=== PATIENT | female | born 1985 | race Hispanic/Latino ===

== ENCOUNTER 2024-10-07 20:23 | Inpatient (IN) | payer SELFPAY ==
[2024-10-07 23:23] VITALS: BP 145/72; PULSE 76; RESP 19; TEMP 98.3; O2SAT 94
[2024-10-07 23:31] VITALS: BP 138/73; PULSE 75; RESP 19
[2024-10-07 23:46] VITALS: BP 134/71; PULSE 74; RESP 19
[2024-10-08] VITALS (119 sets, daily range): BP systolic 103–195; BP diastolic 56–99; PULSE 69–92; RESP 13–35; TEMP 97.5–98.8; O2SAT 94–100
--- NOTE | 2024-10-08 00:35 | HP ---
[facility] HISTORY & PHYSICAL Date Patient Seen: Oct 08, 2024 Time of Visit: 00:35 Supervising Physician: Dr. Loi Monte Primary Care Physician: [ ] Outpatient Specialists: [ ] Inpatient Consults: Dr. Damon PROBLEM LIST: Acute hypoxic respiratory failure, POA Hypertension, POA Pericardial effusion, circumferential, POA Acute kidney injury, at OSH BUN was 63, and creatinine of 5, POA Cardiac tamponade, POA Pleural effusion, left-sided, POA History of gestational hypertension PLAN: Admit to ICU VS per unit protocol Continue cardiac monitoring Keep head of bed above 30 Continue O2 therapy Obtain order labs and chest x-ray NPO after midnight CT surgery consult Type and screen Multimodal pain relief Keep systolic blood pressure less than 160 P.r.n. hydralazine and labetalol DuoNeb q.6 as needed for shortness of breaths Monitor temperature curve Obtain COVID and flu test Treat fever aggressively Bilateral SCDs CBC, CMP, magnesium level daily HPI: 39-year-old female with past medical history of gestational hypertension who presented to [facility] as a transfer from [facility] here for CT evaluation for pericardial effusion for possible pericardial window. Patient initially presented to OSH with complaint of sudden shortness of breaths that started yesterday. At that time presentation in ED patient was also found to have hypertension requiring Cardene drip. Patient was initially admitted to ICU and underwent 2D echo and found to have moderate to large circumferential pericardial effusion with right ventricular early diastolic collapse suggestive of cardiac tamponade. There is also large left- sided pleural effusion. At OSH her initial lab showed BUN of 63, creatinine of 5.0, glucose of 181, BNP of 3019. Patient was seen and examined in her room with relative present at bedside. Apparently patient is Ethiopian-speaking only however bedside nurses available to translate during evaluation. According to the patient she woke up yesterday with severe shortness of breaths. She then presented to OSH for further medical evaluation. Patient denies any flu-like symptoms, fever, travel outside the [place], weight loss, however complains of a nonproductive cough, with pleuritic chest pain, worse when laying flat. Patient denies any weight loss, poor appetite, or night sweating. Patient also denies any smoking, alcohol int vicente, illicit drug use. Patient does not have her own PCP. CT surgery has been consulted and will be evaluated for possible pericardial window in a.m. PAST MEDICAL HX: Gestational DM PAST SURGICAL HX: SOCIAL HISTORY: No tobacco, ETOH, or illicit drug use REVIEW OF SYSTEMS: 12 point ROS reviewed with patient. Pertinent positives mentioned above. Otherwise negative. PHYSICAL EXAM: GENERAL: alert, weak, awake oriented x 3 HEENT: EOMI, Sclera non icteric, moist mucosa NECK: Supple, no JVD, trachea midline LUNGS: Diminished right lung bruno HEART: Regular rate and rhythm. Normal S1 and S2, without murmurs ABD: Abdomen soft, nontender. Bowel sounds present EXT: No clubbing cyanosis or edema NEURO: Alert and oriented to person, follows commands Vital Signs (last 8hr) Date Time Temp Pulse Resp B/P (MAP) Pulse Ox O2 Delivery O2 Flow Rate FiO2 10/08/24 00:16 77 23 165/72 96 Room Air 10/08/24 00:01 75 19 141/73 96 Room Air 10/07/24 23:46 74 19 134/71 96 Room Air 10/07/24 23:31 75 19 138/73 96 Room Air 10/07/24 23:23 98.2 76 19 145/72 96 Room Air LABS: DIAGNOSTICS / RADIOLOGY RESULTS: [ ] PLAN NEURO: Minimize central acting medications as possible. Fall Precautions. Well lighted room through the day and minimize interruptions through the night to prevent acute delirium. PULMONARY: Supplemental 02 as needed Titrate Fio2 to keep Spo2 > or = 90% DuoNebs and CPT as needed IS hourly while awake for pulmonary hygiene CARDIOVASCULAR: Follow hemodynamics. Titrate vasopressor to keep MAP >65 or systolic blood pressure >95mmHg DIPS: None LINES: PIV GI & NUTRITION: NPO Aspirations precautions Prokinetic agents and laxatives as needed KIDNEYS & ELECTROLYTES: Strict monitoring of intake and output Daily weights Avoid nephrotoxic agents Monitor electrolytes and replace as needed Goal urine output of 30mL/hr or 0.5mL/kg/hr ENDOCRINE: Maintain blood glucose between 100-180 at all times. Insulin sliding scale for blood glucose management INFECTIOUS DISEASE: Trend temperature. Minaya-culture if febrile. Micro: [ ] Antibiotics: [ ] HEMATOLOGY & COAGULATION: Monitor H&H. Keep Hgb > 7 Transfuse 1 unit of PRBC for Hgb < 7 Transfuse 1 pack of platelets of platelets < 20, 000 Watch for any signs and symptoms of bleeding SKIN: Pressure ulcer prevention per facility protocol Rehab: PT/OT Prophylaxis: GI: Protonix DVT: Bilateral SCDs Code Status: Full Resuscitation Disposition: ICU pending CT surgery evaluation Other: Total patient care time exceeds 35 minutes excluding all procedures. Supervising physician: ASAD Nelson APRN Oct 08, 2024 00:35
[2024-10-08] MEDS ORDERED: acetaMINOPHEN 650 MG SUPPOSITORY RC PRN (01:00)
[2024-10-08] MEDS ORDERED: LAbetaLOL 20MG SYG IV PRN (01:00)
--- NOTE | 2024-10-08 01:00 | NUR ---
CALLED DR. DEL ROSARIO TO LET MD KNOW OF PATIENT ARRIVAL TO UNIT. UNABLE TO GET A HOLD OF MD. NOTIFIED OLIVA RIVERA FOR . PER OLIVA DEL ROSARIO CONSULT CRITICAL CARE, TYPE AND SCREEN AND KEEP PATIENT NPO. CRITICAL CARE CONSULTED. DOOR REPAIRER BUS TAHA AT BEDSIDE PATIENT SEEN. NO NEW ORDERS.
[2024-10-08 01:40] LABS: BASOPHILS # (AUTO) 0.04 K/uL (0.00-0.20); BASOPHILS % (AUTO) 0.9 % (0.0-5.0); EOSINOPHILS # (AUTO) 0.21 K/uL (0.00-0.70); EOSINOPHILS % (AUTO) 4.9 % (0.0-8.0); HEMATOCRIT 21.6 % (36-48); IMMATURE GRANULOCYTE ABSOLUTE 0.01 K/uL (0-1); LYMPHOCYTES # (AUTO) 1.1 K/uL (1.0-4.8); LYMPHOCYTES % (AUTO) 25.9 % (21.0-51.0); MEAN CORPUSCULAR HEMOGLOBIN 28.5 pg (27.0-33.0); MEAN CORPUSCULAR HGB CONC 33.3 g/dL (32.0-36.0); MEAN CORPUSCULAR VOLUME 85.4 fL (79-99); MONOCYTES # (AUTO) 0.3 K/uL (0.1-1.0); MONOCYTES % (AUTO) 7.5 % (3.0-13.0); NEUTROPHILS # (AUTO) 2.6 K/uL (1.8-7.7); NEUTROPHILS % (AUTO) 60.6 % (40.0-77.0); PLATELET COUNT (AUTO) 172 K/uL (130-400); RED BLOOD CELL COUNT(AUTO) 2.53 MIL/uL (4.00-5.50); RED CELL DISTRIBUTION WIDTH 14.4 % (11.0-15.5); WHITE BLOOD COUNT (AUTO) 4.3 K/uL (4.8-10.8)
[2024-10-08 01:45] LABS: THYROID STIMULATING HORMONE 1.71 uIU/mL (0.36-3.74); URIC ACID 7.6 mg/dL (2.6-7.2)
[2024-10-08 02:07] LABS: HEMOGLOBIN A1C 5.7 % (4.0-6.0)
--- NOTE | 2024-10-08 02:33 | NUR ---
TRANSFER TO ROOM 218 REPORT GIVEN TO GUILLE RIVERA
[2024-10-08] MEDS: SODIUM CHLORIDE 3% FOR INHALATION 4 ML/AMP VIAL.NEB IH ONE ×2 (03:07→03:08)
[2024-10-08 03:25] LABS: SARS-CoV-2, RNA, NAAT NEGATIVE SARS CoV-2 (NEGATIVE)
[2024-10-08 03:29] LABS: INFLUENZA TYPE A Negative For Type A (NEGATIVE); INFLUENZA TYPE B Negative For Type B (NEGATIVE)
[2024-10-08 06:25] LABS: PROTHROMBIN TIME 11.2 SEC (9.6-11.6)
[2024-10-08 06:27] LABS: PARTIAL THROMBOPLASTIN TIME 28.7 SEC (26.3-35.5)
[2024-10-08] MEDS: hydrALAZine 20MG/ML VIAL IV PRN (08:09)
[2024-10-08] MEDS: PANTOPrazole 40 MG/VIAL IVP SCH ×2 (08:09→22:22)
[2024-10-08 08:15] LABS: MEAN CORPUSCULAR HEMOGLOBIN 28.6 pg (27.0-33.0); MEAN CORPUSCULAR HGB CONC 32.4 g/dL (32.0-36.0); MEAN CORPUSCULAR VOLUME 88.2 fL (79-99); RED BLOOD CELL COUNT(AUTO) 2.38 MIL/uL (4.00-5.50); RED CELL DISTRIBUTION WIDTH 14.6 % (11.0-15.5)
--- NOTE | 2024-10-08 08:59 | NUR ---
pt identifies jew with Jehovah witness, is alert, awake, and oriented x 3. was informed on receiving blood product its risks and consented to receiving all blood and or blood product transfusion recommended. pt voices understanding and consented to blood transfusion. no family member at bedside, witnessed by anesthesiologist, Jose nurse practitioner and aki dinh rn AND THIS NURSE.
--- NOTE | 2024-10-08 09:15 | NUR ---
PT TAKEN TO OR BY MIKO RN, PT AAOX3. NO DISTRESS NOTED. VITALS CHARTED.
--- NOTE | 2024-10-08 10:10 | NUR ---
HOLDING AREA NOTES 0930: PT ARRIVED TO HOLDING AREA FROM ICU RM 218, TRANSFERRED BY Jeanie BOSWELL, MIGUEL. PT TO BEGIN RECEIVING BLOOD TRANSFUSION IN HOLDING AREA PRIOR TO TRANSFER TO OR. THIS RN TO MONITOR PATIENT & BEGIN TRANSFUSION. PT. ALERT/ORIENTED X4, ON NC 2L/MIN. DENIES SOB/CHEST PAIN AT THIS TIME. PT HOOKED UP TO MONITORS, PT WITH HYPERTENSION, BP 180S/80S, WILL NOTIFY ANESTHESIA. PT. WITH NOTED INFILTRATED 18G PIV TO LEFT ARM, WILL DC & START NEW IV X2 IN HOLDING AREA. 0935: DR. BOWEN AT BEDSIDE, UPDATED RE: PT HYPERTENSION. NO NEW ORDERS AT THIS TIME. 20G PIV STARTED TO RT WRIST BY THIS RN, 20G PIV STARTED TO LT HAND BY Maira SOUZA RN. PT TOLERATED WELL. 0940: BLOOD RECEIVED FROM BLOOD BANK. BLOOD CONSENT VERIFIED SIGNED IN PT. CHART. PT AGAIN VERBALLY CONFIRMS CONSENT WAS SIGNED BY HER AND DESIRE TO RECEIVE TRANSFUSION SIGNED TO THIS RN & Maira SOUZA RN. 0954: FIRST UNIT PRBCS STARTED AT THIS TIME. 1010: PT TXFERRED TO OR BY Jeanie BOSWELL RN WITH FIRST UNIT OF PRBCS TRANSFUSING. NO S/S TRANSFUSION REACTION NOTED DURING THIS RN TIME OF MONITORING IN HOLDING AREA. PT DENIES DISCOMFORT, CHANGES IN SIGNS/SYMPTOMS, OR SOB/CHEST PAIN, VITAL SIGNS REMAIN AT BASELINE WHEN TRANSFERRED.
[2024-10-08] MEDS ORDERED: GLYCOPYRROLATE 0.2 MG/ML 5 ML VIAL ONE (10:11)
[2024-10-08] MEDS ORDERED: SUCCINYLCHOLINE CHLORIDE 20 MG/ML 10 ML VIAL ONE (10:11)
[2024-10-08] MEDS ORDERED: proPOFol 10 MG/ML 20ML VIAL IV ONE (10:11)
[2024-10-08] MEDS ORDERED: dexaMETHasone SOD PHOSPHATE 10MG/ML 1ML VIAL ONE (10:11)
[2024-10-08] MEDS ORDERED: ondanSETRON 4MG INJ ONE (10:11)
[2024-10-08] MEDS ORDERED: FENTanyl CITRate PF 50 MCG/1 ML 2ML VIAL ONE (10:11)
[2024-10-08] MEDS ORDERED: NEOSTIGMINE METHYLSULFATE 1MG/ML IV ONE (10:11)
[2024-10-08] MEDS ORDERED: LIDOCAINE PF 100MG/5ML (2%) SYRINGE 5ML ONE ×2 (10:11→10:59)
[2024-10-08] MEDS ORDERED: ETOMIDATE 20MG VIAL ONE (10:12)
[2024-10-08] MEDS ORDERED: rocuRONium bROMide 10MG/1ML 5ML VL ONE (10:12)
[2024-10-08] MEDS ORDERED: NOREPINEPHRINE BITARTRATE 1 MG/1 ML ML IV ONE (10:15)
[2024-10-08] MEDS: ceFAZolin SODIUM 1 GM VIAL ONE (10:30)
[2024-10-08] MEDS: MEPERIDINE-PF 25 MG/ML SYG ONE (11:25)
--- NOTE | 2024-10-08 11:35 | PN ---
[facility] PROGRESS NOTE Date Patient Seen: Oct 08, 2024 Time of Visit: 11:35 Supervising Physician:Dr. Loi Monet Primary Care Physician: [ ] Outpatient Specialists: [ ] Inpatient Consults: Dr. Damon PROBLEM LIST: Acute hypoxic respiratory failure, POA Hypertension, POA Pericardial effusion, circumferential, POA Acute kidney injury, at OSH BUN was 63, and creatinine of 5, POA Cardiac tamponade, POA Pleural effusion, left-sided, POA History of gestational hypertension INTERVAL HISTORY: 10/08/2024: At the time of my evaluation, the patient was lying in bed. Vital signs today consistent elevated blood pressure, normal heart and respiratory rate. Laboratory data showed a low WBC of 4.0. H and H 6.8/21.0 with a MCV of 88.2 and a MCH of 28.6. Platelet count 161. No sign of bleeding. Chemistry panel was negative. The patient is pending to undergo a pericardial window today. Staff nurse reports no acute events overnight. No other complaint. REVIEW OF SYSTEMS: 12 point ROS reviewed with patient. Pertinent positives mentioned above. Otherwise negative. PHYSICAL EXAM: GENERAL: alert, weak, awake oriented x 3 HEENT: EOMI, Sclera non icteric, moist mucosa NECK: Supple, no JVD, trachea midline LUNGS: Diminished right lung bruno HEART: Regular rate and rhythm. Normal S1 and S2, without murmurs ABD: Abdomen soft, nontender. Bowel sounds present EXT: No clubbing cyanosis or edema NEURO: Alert and oriented to person, follows commands Vital Signs (last 8hr) Date Time Temp Pulse Resp B/P (MAP) Pulse Ox O2 Delivery O2 Flow Rate FiO2 10/08/24 10:09 98.1 89 185/87 10/08/24 10:09 98.1 89 185/ 100 Nasal Cannula 2.0 10/08/24 09:59 97.5 89 19110/08/24 09:59 97.5 88 100 Nasal Cannula 2.0 10/08/24 09:54 97.9 90 192/10/08/24 09:54 97.9 90 192/ 100 Nasal Cannula 2.0 10/08/24 09:45 89 21 100 Nasal Cannula 2.0 10/08/24 09:40 90 20 188/86 100 Nasal Cannula 2.0 10/08/24 09:35 92 20 100 Nasal Cannula 2.0 10/08/24 09:30 97.9 91 18 181/85 100 Nasal Cannula 2.0 10/08/24 09:00 88 19 100 10/08/24 08:46 85 19 159/80 100 Room Air 10/08/24 08:45 86 17 100 10/08/24 08:30 86 18 100 10/08/24 08:15 98.2 84 16 100 10/08/24 08:00 79 15 100 Room Air 10/08/24 08:00 94 Room Air* 0 21 10/08/24 07:48 79 21 181/81 100 10/08/24 07:46 80 20 180/93 100 10/08/24 07:45 79 20 100 10/08/24 07:30 81 18 100 10/08/24 07:15 80 20 100 10/08/24 07:13 80 19 179/92 100 Room Air 10/08/24 07:00 81 29 100 Nasal Cannula 1.0 10/08/24 06:00 75 16 176/82 100 Nasal Cannula 1.0 24 10/08/24 05:00 69 15 153/72 99 Nasal Cannula 1.0 24 10/08/24 04:00 98.6 75 13 169/85 100 Nasal Cannula 1.0 24 LABS: Hematology Labs: Test 10/08/24 06:06 10/08/24 00:50 Range/Units White Blood Count 4.0 L 4.8-10.8 K/uL Red Blood Count 2.38 L 4.00-5.50 MIL/uL Hemoglobin 6.8 *L 12.0-16.0 g/dL Hematocrit 21.0 *L 36-48 % Mean Corpuscular Volume 88.2 79-99 fL Mean Corpuscular Hemoglobin 28.6 27.0-33.0 pg Mean Corpuscular Hemoglobin Concent 32.4 32.0-36.0 g/dL Red Cell Distribution Width 14.6 11.0-15.5 % Platelet Count 161 130-400 K/uL Mean Platelet Volume 12.2 H 7.5-10.5 fL Nucleated Red Blood Cells 0.0 0.0-0.19 % Immature Granulocyte % (Auto) 0.2 0-1 % Neutrophils (%) (Auto) 60.6 40.0-77.0 % Lymphocytes (%) (Auto) 25.9 21.0-51.0 % Monocytes (%) (Auto) 7.5 3.0-13.0 % Eosinophils (%) (Auto) 4.9 0.0-8.0 % Basophils (%) (Auto) 0.9 0.0-5.0 % Neutrophils # (Auto) 2.6 1.8-7.7 K/uL Lymphocytes # (Auto) 1.1 1.0-4.8 K/uL Monocytes # (Auto) 0.3 0.1-1.0 K/uL Eosinophils # (Auto) 0.21 0.00-0.70 K/uL Basophils # (Auto) 0.04 0.00-0.20 K/uL Absolute Immature Granulocyte (auto 0.01 0-1 K/uL Erythrocyte Sedimentation Rate 88 H 0-20 MM/HR Chemistry Labs: Test 10/08/24 06:06 10/08/24 00:50 Range/Units Serum Test, Qualitative NEGATIVE NEGATIVE Hemoglobin A1c 5.7 4.0-6.0 % Estimated Average Glucose (eAG) 117 70-126 mg/dL Uric Acid 7.6 H 2.6-7.2 mg/dL Total Creatine Kinase 38 21-232 U/L Troponin I High Sensitivity 49.4 4-50 ng/L B-Type Natriuretic Peptide 299 H 0-100 pg/mL Procalcitonin 2.71 H 0.05-0.5 ng/mL Thyroid Stimulating Hormone (TSH) 1.71 0.36-3.74 uIU/mL Coagulation Labs: Test 10/08/24 06:06 Range/Units Prothrombin Time 11.2 9.6-11.6 SEC Prothromb Time International Ratio 1.00 0.85-1.15 Activated Partial Thromboplast Time 28.7 26.3-35.5 SEC DIAGNOSTICS / RADIOLOGY RESULTS: [ ] PLAN 10/08/2024: For now, we are going to continue current management for the patient. Unfortunately, the patient H&H is low. She is also a Mosque believer. Anesthesia spoke with the patient regarding the low H&H and the need for correction in efforts of undergoing the procedure. The patient did agreed for blood transfusion which will be done once the patient was taken to the OR. We will continue to monitor the H&H coordinate post transfusion. The patient will continue on GI prophylaxis with IV Protonix, which I am going to increase to twice daily. We will continue to follow up with the patient postoperatively. We will continue to provide general supportive care, GI and DVT prophylaxis. Further orders per attending MD and hospital course. NEURO: Minimize central acting medications as possible. Fall Precautions. Well lighted room through the day and minimize interruptions through the night to prevent acute delirium. PULMONARY: Supplemental 02 as needed Titrate Fio2 to keep Spo2 > or = 90% DuoNebs and CPT as needed IS hourly while awake for pulmonary hygiene CARDIOVASCULAR: Follow hemodynamics. Titrate vasopressor to keep MAP >65 or systolic blood pressure >95mmHg DIPS: None LINES: PIV GI & NUTRITION: NPO Aspirations precautions Prokinetic agents and laxatives as needed KIDNEYS & ELECTROLYTES: Strict monitoring of intake and output Daily weights Avoid nephrotoxic agents Monitor electrolytes and replace as needed Goal urine output of 30mL/hr or 0.5mL/kg/hr ENDOCRINE: Maintain blood glucose between 100-180 at all times. Insulin sliding scale for blood glucose management INFECTIOUS DISEASE: Trend temperature. Minaya-culture if febrile. Micro: [ ] Antibiotics: [ ] HEMATOLOGY & COAGULATION: Monitor H&H. Keep Hgb > 7 Transfuse 1 unit of PRBC for Hgb < 7 Transfuse 1 pack of platelets of platelets < 20, 000 Watch for any signs and symptoms of bleeding SKIN: Pressure ulcer prevention per facility protocol Rehab: PT/OT Prophylaxis: GI: Protonix DVT: Bilateral SCDs Code Status: Full Resuscitation Disposition: ICU Other: Total patient care time exceeds 35 minutes excluding all procedures. DAVE OSWALD NP Oct 08, 2024 11:35
--- NOTE | 2024-10-08 12:28 | NUR ---
pt arrived at this time form PACU, SP PERICARDIAL WINDOW, CHEST TUBE PRESENT TO 1 CHAMBER WITH 85 CC PRESENT OF SEROSANGUINEOUS FLUID. PT AAOX3. VITALS CHARTED.
[2024-10-08] MEDS: HYDROcodone/APAP 5/325 1 TAB TABLET PO PRN (12:38)
[2024-10-08] MEDS: SUGAMMADEX SODIUM 200 MG/2 ML VIAL IV ONE (12:39)
[2024-10-08 12:55] LABS: AMYLASE,BODY FLUID 26 U/L; TOTAL PROTEIN,BODY FLUID 3.6 g/dL
[2024-10-08 12:56] LABS: BODY FLUID RBC 2382 /cu. mm.; BODY FLUID WBC 117 /cu. mm.
--- NOTE | 2024-10-08 14:42 | HMCIMG ---
CHEST 1VW HISTORY: Pericardial window COMPARISON: 10/06/2024 FINDINGS: A frontal projection of the chest was obtained. There are bilateral pulmonary infiltrates suggestive of pulmonary vascular congestion with possible superimposed pneumonitis. The heart is borderline enlarged. Poor inspiratory effort is seen. No evidence of aortic calcification is seen. IMPRESSION: 1. Bilateral pulmonary infiltrates are seen suggestive of pulmonary vascular congestion with possible superimposed pneumonitis.
[2024-10-08 15:05] LABS: BF LYMPHOCYTE 29 %; BF MONOCYTE 12 %; BF TOTAL CELLS COUNTED 100
[2024-10-08 15:06] LABS: APPEARANCE BODY FLUID SLIGHTLY CLOUDY (CLEAR); COLOR,BODY FLUID LT YELLOW (LT YELLOW); PH, BODY FLUID 7; SPECIMENTYPE,BODY FLUID PERICARDIAL; TOTAL VOLUME,BODY FLUID 100 mL
[2024-10-08] MEDS: hydroMORPHone 0.5 MG SYG (0.5MG/0.5ML) IVP PRN (16:00)
--- NOTE | 2024-10-08 16:13 | NUR ---
DCP Pt awake, alert, oriented x3 pt states she lives with her daughter in her house and has lived there for 18 yrs. Pt does not have any medical equipment. If needed primary point of contact is mother Suellen Mariee [phone]. Asked if pt has difficulty paying bills and money for food, states yes some difficulty. Provided pt and her mother Suellen Mariee with [facility] resource list. Anticipates discharge plan is for home. Addendum: 10/08/24 at 1619 by BRENDA DIAZ RN CM Amended: Links added.
--- NOTE | 2024-10-08 20:18 | OP ---
DATE OF PROCEDURE: 10/08/2024 PREOPERATIVE DIAGNOSIS: Pericardial effusion with evidence of early tamponade. POSTOPERATIVE DIAGNOSIS: Pericardial effusion with evidence of early tamponade. PROCEDURE PERFORMED: Pericardial window. OPERATING SURGEON: Anup Damon MD PROTOTYPE MACHINE OPERATOR: Norma Landa ANESTHESIOLOGIST: Dr. Persaud. TYPE OF ANESTHESIA: General endotracheal anesthesia. BRIEF HISTORY: The patient is a 39-year-old female with past history of hypertension, who presented with shortness of breath and fatigue, who was found to be in hypertensive crisis. This was treated with IV antihypertensives. She also underwent an echocardiogram, which revealed a large pericardial effusion with evidence of early tamponade. She was transferred to this institution for pericardial window. FINDINGS: The patient had 400 mL of serous fluid under pressure in her pericardium. She had 200 mL of serous fluid in right pleural space. The pericardium itself was normal and was not inflamed or thickened. DESCRIPTION OF PROCEDURE: The patient was brought to the operating room and placed on the operating table in supine position. After placing lines and catheters, her chest was prepped and draped in usual sterile fashion gowned and ready to cut, the patient was given general endotracheal anesthesia. A longitudinal incision was made over the xiphoid. The xiphoid was dissected out and removed with a rongeur. The pericardium was then cleared of pericardial fat and pericardium was entered with electrocautery and spread with . A 400 mL of serous fluid under pressure was drained, 100 mL of which was sent to lab. A piece of pericardium was excised and sent to pathology. The pericardium was then deeply cut into the right pleural space and a 24-Portuguese Horacio drain with its tip in the right pleural space and its body and the pericardium was secured to the lower incision with a silk suture. The midline fascia was then closed with running Vicryl suture, subcutaneous tissues closed with running Vicryl suture and the skin closed using a running intracuticular Monocryl stitch. The wounds were cleaned and dried, covered with bandages. The patient was undraped, extubated and taken to recovery room into the ICU in critical but stable condition. TID: [id number] RECEIPT: [id number] cc: SHAUN PEREZ MD(User), Norma Landa
[2024-10-09] VITALS (37 sets, daily range): BP systolic 112–196; BP diastolic 52–93; PULSE 76–93; RESP 12–26; TEMP 97.7–99; O2SAT 95–99
[2024-10-09 04:46] LABS: BASOPHILS # (AUTO) 0.05 K/uL (0.00-0.20); BASOPHILS % (AUTO) 0.5 % (0.0-5.0); EOSINOPHILS # (AUTO) 0.01 K/uL (0.00-0.70); EOSINOPHILS % (AUTO) 0.1 % (0.0-8.0); HEMATOCRIT 32.5 % (36-48); IMMATURE GRANULOCYTE ABSOLUTE 0.04 K/uL (0-1); LYMPHOCYTES # (AUTO) 0.8 K/uL (1.0-4.8); LYMPHOCYTES % (AUTO) 7.9 % (21.0-51.0); MEAN CORPUSCULAR HEMOGLOBIN 28.8 pg (27.0-33.0); MEAN CORPUSCULAR HGB CONC 32.9 g/dL (32.0-36.0); MEAN CORPUSCULAR VOLUME 87.6 fL (79-99); MONOCYTES # (AUTO) 0.6 K/uL (0.1-1.0); MONOCYTES % (AUTO) 6.1 % (3.0-13.0); NEUTROPHILS # (AUTO) 8.3 K/uL (1.8-7.7); PLATELET COUNT (AUTO) 166 K/uL (130-400); RED BLOOD CELL COUNT(AUTO) 3.71 MIL/uL (4.00-5.50); RED CELL DISTRIBUTION WIDTH 15.6 % (11.0-15.5); WHITE BLOOD COUNT (AUTO) 9.8 K/uL (4.8-10.8)
[2024-10-09 04:52] LABS: INR 1.07 (0.85-1.15); PROTHROMBIN TIME 11.9 SEC (9.6-11.6)
[2024-10-09 05:03] LABS: MAGNESIUM 1.8 mg/dL (1.80-2.40); PHOSPHORUS 6.1 mg/dL (2.5-4.9); POTASSIUM 5.6 mmol/L (3.5-5.1); THYROID STIMULATING HORMONE 1.79 uIU/mL (0.36-3.74)
[2024-10-09 05:24] LABS: B-TYPE NATRIURETIC PEPTIDE 739 pg/mL (0-100)
[2024-10-09] MEDS: kayEXALate 15GM/60ML PO ONE (09:27)
--- NOTE | 2024-10-09 10:09 | PN ---
SUBJECTIVE: The patient is postop day #1 from a pericardial window. The patient is extubated and doing well and offers no complaints. However, her renal function and her labs this morning are worsening. OBJECTIVE: VITAL SIGNS: Reveal pulse of 76, respirations 16, blood pressure is 159/77, oxygen saturations are 100%. HEENT: Reveals to be normocephalic, atraumatic. Extraocular movements intact. She has nasal cannula oxygen prongs under her nose. HEART: S1, S2 with a rub. CHEST: Her subxiphoid wound is bandaged. Her chest tubes in place with a total of 550 mL of output from her pericardium in right chest. ABDOMEN: Flat with positive bowel sounds. ASSESSMENT AND PLAN: * From pericardial window. Keep chest tubes in place, but put to waterseal. The patient up into a bedside chair. The patient will be transferred out of the ICU to a telemetry unit for cardiac rehabilitation. * Post operative acute pulmonary insufficiency secondary to thoracic surgery and pericardial effusion and renal dysfunction. Encourage incentive spirometry. Attempt to wean off of nasal cannula oxygen ____ oxygen saturations above 90%. * Deep vein thrombosis prophylaxis. Place SCDs to her lower extremities. * Renal dysfunction. We will consult Nephrology. Time spent 30 minutes. The patient is in the ICU. TID: [id number] RECEIPT: [id number]
[2024-10-09] MEDS: ondanSETRON 4MG INJ IVP PRN (10:31)
--- NOTE | 2024-10-09 11:30 | HMCIMG ---
FRONTAL CHEST RADIOGRAPH INDICATION: s/p pericardial window COMPARISON: 10/08/2024 FINDINGS/IMPRESSION: funeral service manager leads overlie the field of view. Heart is slightly enlarged, without pulmonary vascular congestion. Stable right chest tube, without pneumothorax. Small layering bilateral pleural effusions with subjacent passive atelectasis.
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
[2024-10-09 14:52] LABS: POTASSIUM 5.7 mmol/L (3.5-5.1)
[2024-10-09] MEDS: NA ZIRCON CYCLOSIL(LOKELMA 10GM) PO SCH (15:33)
--- NOTE | 2024-10-09 15:38 | PN ---
[facility] PROGRESS NOTE Date Patient Seen: Oct 09, 2024 Time of Visit: 15:24 Supervising Physician: Dr. Ferreira Primary Care Physician: [ ] Outpatient Specialists: [ ] Inpatient Consults: Dr. Damon PROBLEM LIST: Acute hypoxic respiratory failure, POA Hypertension, POA Pericardial effusion, circumferential, POA s/p pericardial window on 10/08/24 Acute kidney injury on CKD 5 POA Cardiac tamponade, POA Pleural effusion, left-sided, POA History of gestational hypertension INTERVAL HISTORY: 10/08/2024: At the time of my evaluation, the patient was lying in bed. Vital signs today consistent elevated blood pressure, normal heart and respiratory rate. Laboratory data showed a low WBC of 4.0. H and H 6.8/21.0 with a MCV of 88.2 and a MCH of 28.6. Platelet count 161. No sign of bleeding. Chemistry panel was negative. The patient is pending to undergo a pericardial window today. Staff nurse reports no acute events overnight. No other complaint. 10/09/2024: At the time of my evaluation, the patient is lying in bed. She is status post pericardial window on one 10/08/2024. Per the staff nurse, chest tube output overnight was approximately 300 mL. The patient's main complaint is chest wall pain on the right. Blood pressure readings showed elevated blood pressure systolic in the 170s. CBC showed improve H&H the 10.7/32.5 NS stable platelet count of 166. Chemistry panel showed elevated potassium count of 5.6 renal parameters showed a BUN of 68, creatinine of 6.0 and a GFR of 8. BNP level of 739. Microbiology data showed body fluids which are currently negative. Chest x-ray today showed chest tube in stable position, cardiomegaly and bilateral pleural effusion. Otherwise, no new complaint. REVIEW OF SYSTEMS: 12 point ROS reviewed with patient. Pertinent positives mentioned above. Otherwise negative. PHYSICAL EXAM: GENERAL: alert, weak, awake oriented x 3 HEENT: EOMI, Sclera non icteric, moist mucosa NECK: Supple, no JVD, trachea midline LUNGS: Diminished right lung bruno HEART: Regular rate and rhythm. Normal S1 and S2, without murmurs ABD: Abdomen soft, nontender. Bowel sounds present EXT: No clubbing cyanosis or edema NEURO: Alert and oriented to person, follows commands Vital Signs (last 8hr) Date Time Temp Pulse Resp B/P (MAP) Pulse Ox O2 Delivery O2 Flow Rate FiO2 10/09/24 12:00 98.6 81 24 177/87 100 Nasal Cannula 2.0 10/09/24 11:00 80 21 178/83 100 Nasal Cannula 2.0 10/09/24 10:00 80 26 189/90 100 Nasal Cannula 2.0 10/09/24 09:00 77 22 158/77 100 Nasal Cannula 2.0 10/09/24 08:00 99 Nasal Cannula* 2 28 10/09/24 08:00 98.4 77 24 169/80 100 Nasal Cannula 2.0 LABS: Hematology Labs: Test 10/09/24 04:29 Range/Units White Blood Count 9.8 # 4.8-10.8 K/uL Red Blood Count 3.71 #L 4.00-5.50 MIL/uL Hemoglobin 10.7 #L 12.0-16.0 g/dL Hematocrit 32.5 #L 36-48 % Mean Corpuscular Volume 87.6 79-99 fL Mean Corpuscular Hemoglobin 28.8 27.0-33.0 pg Mean Corpuscular Hemoglobin Concent 32.9 32.0-36.0 g/dL Red Cell Distribution Width 15.6 H 11.0-15.5 % Platelet Count 166 130-400 K/uL Mean Platelet Volume 12.3 H 7.5-10.5 fL Immature Granulocyte % (Auto) 0.4 0-1 % Neutrophils (%) (Auto) 85.0 H 40.0-77.0 % Lymphocytes (%) (Auto) 7.9 L 21.0-51.0 % Monocytes (%) (Auto) 6.1 3.0-13.0 % Eosinophils (%) (Auto) 0.1 0.0-8.0 % Basophils (%) (Auto) 0.5 0.0-5.0 % Neutrophils # (Auto) 8.3 H 1.8-7.7 K/uL Lymphocytes # (Auto) 0.8 L 1.0-4.8 K/uL Monocytes # (Auto) 0.6 0.1-1.0 K/uL Eosinophils # (Auto) 0.01 0.00-0.70 K/uL Basophils # (Auto) 0.05 0.00-0.20 K/uL Absolute Immature Granulocyte (auto 0.04 0-1 K/uL Nucleated Red Blood Cells 0.0 0.0-0.19 % White Cell Morphology Comment See comments Erythrocyte Sedimentation Rate 40 H 0-20 MM/HR Chemistry Labs: Test 10/09/24 14:23 10/09/24 04:29 10/08/24 06:06 10/08/24 00:50 Range/Units Sodium Level 137 136-145 mmol/L Potassium Level 5.7 H 3.5-5.1 mmol/L Chloride Level 102 101-111 mmol/L Carbon Dioxide Level 25 21-32 mmol/L Blood Urea Nitrogen 70 H 7-18 mg/dL Creatinine 6.0 H 0.5-1.0 mg/dL Glomerular Filtration Rate Calc 8 >90 mL/min Random Glucose 84 70-105 mg/dL Total Calcium 8.3 L 8.5-10.1 mg/dL Phosphorus Level 6.1 H 2.5-4.9 mg/dL Magnesium Level 1.80 1.80-2.40 mg/dL Lactate Dehydrogenase 175 81-234 U/L C-Reactive Protein, Quantitative 75.90 H 0.5-3.0 mg/L B-Type Natriuretic Peptide 739 H 0-100 pg/mL Thyroid Stimulating Hormone (TSH) 1.79 0.36-3.74 uIU/mL Serum Test, Qualitative NEGATIVE NEGATIVE Hemoglobin A1c 5.7 4.0-6.0 % Estimated Average Glucose (eAG) 117 70-126 mg/dL Uric Acid 7.6 H 2.6-7.2 mg/dL Total Creatine Kinase 38 21-232 U/L Troponin I High Sensitivity 49.4 4-50 ng/L Procalcitonin 2.71 H 0.05-0.5 ng/mL Coagulation Labs: Test 10/09/24 04:29 10/08/24 06:06 Range/Units Prothrombin Time 11.9 H 9.6-11.6 SEC Prothromb Time International Ratio 1.07 0.85-1.15 Activated Partial Thromboplast Time 28.7 26.3-35.5 SEC DIAGNOSTICS / RADIOLOGY RESULTS: [ ] PLAN 10/08/2024: For now, we are going to continue current management for the pa tient. Unfortunately, the patient H&H is low. She is also a L[employer] day believer. Anesthesia spoke with the patient regarding the low H&H and the need for correction in efforts of undergoing the procedure. The patient did agreed for blood transfusion which will be done once the patient was taken to the OR. We will continue to monitor the H&H coordinate post transfusion. The patient will continue on GI prophylaxis with IV Protonix, which I am going to increase to twice daily. We will continue to follow up with the patient postoperatively. We will continue to provide general supportive care, GI and DVT prophylaxis. Further orders per attending MD and hospital course. 10/09/2024: For now, going to continue current management for the patient. I am going to replace the potassium deficit, the patient receive Kayexalate earlier today, but the right after had a emesis episodes. I am going to order Lokelma 10 b.i.d. x2 days and we will follow the potassium level. Nephrology is on board due to the elevated renal parameters nearing dialysis range. Per the career development associate, the chest tube to remain to water seal and continue monitoring the output. We will repeat surveillance labs in the morning. We will monitor the patient's progress and response to management. We will continue to provide general supportive care, GI and DVT prophylaxis. Further orders per attending MD and hospital course. NEURO: Minimize central acting medications as possible. Fall Precautions. Well lighted room through the day and minimize interruptions through the night to prevent acute delirium. PULMONARY: Supplemental 02 as needed Titrate Fio2 to keep Spo2 > or = 90% DuoNebs and CPT as needed IS hourly while awake for pulmonary hygiene CARDIOVASCULAR: Follow hemodynamics. Titrate vasopressor to keep MAP >65 or systolic blood pressure >95mmHg DIPS: None LINES: PIV GI & NUTRITION: NPO Aspirations precautions Prokinetic agents and laxatives as needed KIDNEYS & ELECTROLYTES: Strict monitoring of intake and output Daily weights Avoid nephrotoxic agents Monitor electrolytes and replace as needed Goal urine output of 30mL/hr or 0.5mL/kg/hr ENDOCRINE: Maintain blood glucose between 100-180 at all times. Insulin sliding scale for blood glucose management INFECTIOUS DISEASE: Trend temperature. Minaya-culture if febrile. Micro: [ ] Antibiotics: [ ] HEMATOLOGY & COAGULATION: Monitor H&H. Keep Hgb > 7 Transfuse 1 unit of PRBC for Hgb < 7 Transfuse 1 pack of platelets of platelets < 20, 000 Watch for any signs and symptoms of bleeding SKIN: Pressure ulcer prevention per facility protocol Rehab: PT/OT Prophylaxis: GI: Protonix DVT: Bilateral SCDs Code Status: Full Resuscitation Disposition: ICU Other: Total patient care time exceeds 35 minutes excluding all procedures. DAVE OSWALD [employer] SUPERVISOR Oct 09, 2024 15:37
--- NOTE | 2024-10-09 15:42 | CONS ---
NEPHROLOGY CONSULTATION NOTE Date/Time Patient Seen: Oct 09, 2024 1415 Reason for Consultation: Shortness of breath, Pericardial effusion, acute on chronic renal failure HISTORY OF PRESENT ILLNESS: This is a 39-year-old female with a past medical history of gestational hypertension Patient was transferred from [facility] for CT evaluation for pericardial effusion and possible pericardial window. She presented to [facility] Emergency room with complaints of sudden shortness of breath. She was found to be hypertensive according Cardene drip. 2D echo revealed found to have moderate to large circumferential pericardial effusion with right ventricular early diastolic collapse suggestive of cardiac tamponade. There is also large left-sided pleural effusion. S/p pericardial window with 400 mL removed, 100 mL were sent for cytology. She was noted to have elevated BUN/creatinine. We have been consulted for renal failure. Renal function remains elevated Electrolytes and hemoglobin are stable. Patient is aware of kidney problems states she had a biopsy done by head stock transfer clerk Patient not does not remember biopsy results or head stock transfer clerk name. She was seen in the ICU, in no acute distress Family at the bedside Prognosis remains guarded REVIEW OF SYSTEMS: GENERAL: Negative for any nausea, vomiting, fevers, chills, or weight loss. NEUROLOGIC: Negative for any blurry vision, blind spots, double vision, facial asymmetry, dysphagia, dysarthria, hemiparesis, hemisensory deficits, vertigo, at axia. HEENT: Negative for any head trauma, neck trauma, neck stiffness, photophobia, phonophobia, sinusitis, rhinitis. CARDIAC: Negative for any chest pain, dyspnea on exertion, paroxysmal nocturnal dyspnea, peripheral edema. PULMONARY: Negative for any shortness of breath, wheezing, COPD, or TB exposure. GASTROINTESTINAL: Negative for any abdominal pain, nausea, vomiting, bright red blood per rectum, melena. GENITOURINARY: Negative for any dysuria, hematuria, incontinence. INTEGUMENTARY: Negative for any rashes, cuts, insect bites. RHEUMATOLOGIC: Negative for any joint pains, photosensitive rashes, history of vasculitis or kidney problems. HEMATOLOGIC: Negative for any abnormal bruising, frequent infections or bleedin g. PAST MEDICAL HISTORY: Gestational hypertension PAST SURGICAL HISTORY: Pericardial window PAST SOCIAL HISTORY: FAMILY HISTORY: Noncontributory PHYSICAL EXAM: GENERAL: Alert and oriented x 3. No acute distress. Well-nourished. EYES: EOMI. Anicteric. HENT: Moist mucous membranes. No scleral icterus. No cervical lymphadenopathy. LUNGS: Clear to auscultation bilaterally. No accessory muscle use. CARDIOVASCULAR: Regular rate and rhythm. No murmur. No JVD. ABDOMEN: Soft, non-tender and non-distended. No palpable masses. EXTREMITIES: No edema. Non-tender. SKIN: No rashes or lesions. Warm. NEUROLOGIC: No focal neurological deficits. CN II-XII grossly intact, but not individually tested. PSYCHIATRIC: Cooperative. Appropriate mood and affect. MEDICATIONS: [ ] Current Medications Medications (Trade) Dose Ordered Sig/Rosana Route PRN Reason Start Time Stop Time Status Last Admin Dose Admin Acetaminophen (TYLenol 325MG TAB) 650 mg Q6H PRN PO FEVER/MILD PAIN LEVEL 1-3 10/08/24 01:00 11/07/24 00:59 Acetaminophen (TYLenol 650MG SUPPOSITORY) 650 mg Q6H PRN RC FEVER / MILD PAIN 1-3 IF NPO 10/08/24 01:00 11/07/24 00:59 Acetaminophen/ Hydrocodone Bitart (NORco 5/325MG) 1 tab Q6H PRN PO MILD PAIN (1-3) 10/08/24 01:00 10/13/24 00:59 10/09/24 15:20 1 TAB Hydralazine HCl (APRESOLine 20MG INJ) 10 mg Q6H PRN IV SBP GREATER THAN 180 10/08/24 01:00 11/07/24 00:59 10/08/24 08:09 10 MG Hydromorphone HCl (DiLAUDid 0.5MG INJ) 0.5 mg Q6H PRN IVP SEVERE PAIN (7-10) 10/08/24 15:30 10/13/24 15:29 10/08/24 16:00 0.5 MG Labetalol HCl (TRANdate 20MG SYG) 10 mg Q2H PRN IV SBP GREATER THAN 180 10/08/24 01:00 11/07/24 00:59 Magnesium Sulfate 50 ml @ 0 mls/hr PROTOCOL IV 10/09/24 07:00 11/08/24 06:59 Ondansetron HCl (zoFRAN 4MG INJ) 4 mg Q6H PRN IVP NAUSEA/VOMITING 10/08/24 01:00 11/07/24 00:59 10/09/24 10:31 4 MG Pantoprazole Sodium (PROTonix 40MG INJ) 40 mg DAILY IVP 10/08/24 09:00 10/08/24 21:44 DC 10/08/24 08:09 40 MG Pantoprazole Sodium (PROTonix 40MG INJ) 40 mg Q12H IVP 10/08/24 22:00 11/07/24 08:59 10/09/24 09:28 40 MG Sodium Zirconium Cyclosilicate (Lokelma 10gm Powder) 10 gm BID PO 10/09/24 15:00 10/10/24 21:00 Vitamin B Complex/ Vit C/Folic Acid (Nephrovite Tablet) 1 cap DAILY PO 10/10/24 09:00 11/09/24 08:59 Vital Signs (last 8hr) Date Time Temp Pulse Resp B/P (MAP) Pulse Ox O2 Delivery O2 Flow Rate FiO2 10/09/24 12:00 98.6 81 24 177/87 100 Nasal Cannula 2.0 10/09/24 11:00 80 21 178/83 100 Nasal Cannula 2.0 10/09/24 10:00 80 26 189/90 100 Nasal Cannula 2.0 10/09/24 09:00 77 22 158/77 100 Nasal Cannula 2.0 10/09/24 08:00 99 Nasal Cannula* 2 28 10/09/24 08:00 98.4 77 24 169/80 100 Nasal Cannula 2.0 DIAGNOSTICS / RADIOLOGY: REASON: s/p pericardial window ORDERING PHYSICIAN: MICHAEL DEL ROSARIO MD PROCEDURE: CXR1VW - CHEST 1VW FRONTAL CHEST RADIOGRAPH INDICATION: s/p pericardial window COMPARISON: 10/08/2024 FINDINGS/IMPRESSION: electronic device monitor leads overlie the field of view. Heart is slightly enlarged, without pulmonary vascular congestion. Stable right chest tube, without pneumothorax. Small layering bilateral pleural effusions with subjacent passive atelectasis. DICTATED BY: JORGE BILLS MD DATE: 10/09/246 REASON: s/p pericardial window ORDERING PHYSICIAN: MICHAEL DEL ROSARIO MD PROCEDURE: CXR1VW - CHEST 1VW CHEST 1VW HISTORY: Pericardial window COMPARISON: 10/06/2024 FINDINGS: A frontal projection of the chest was obtained. There are bilateral pulmonary infiltrates suggestive of pulmonary vascular congestion with possible superimposed pneumonitis. The heart is borderline enlarged. Poor inspiratory effort is seen. No evidence of aortic calcification is seen. IMPRESSION: 1. Bilateral pulmonary infiltrates are seen suggestive of pulmonary vascular congestion with possible superimposed pneumonitis. DICTATED BY: KARL DRISCOLL MD DATE: 10/08/24 1437 LABORATORY: [ ] Hematology Labs: Test 10/09/24 04:29 Range/Units White Blood Count 9.8 # 4.8-10.8 K/uL Red Blood Count 3.71 #L 4.00-5.50 MIL/uL Hemoglobin 10.7 #L 12.0-16.0 g/dL Hematocrit 32.5 #L 36-48 % Mean Corpuscular Volume 87.6 79-99 fL Mean Corpuscular Hemoglobin 28.8 27.0-33.0 pg Mean Corpuscular Hemoglobin Concent 32.9 32.0-36.0 g/dL Red Cell Distribution Width 15.6 H 11.0-15.5 % Platelet Count 166 130-400 K/uL Mean Platelet Volume 12.3 H 7.5-10.5 fL Immature Granulocyte % (Auto) 0.4 0-1 % Neutrophils (%) (Auto) 85.0 H 40.0-77.0 % Lymphocytes (%) (Auto) 7.9 L 21.0-51.0 % Monocytes (%) (Auto) 6.1 3.0-13.0 % Eosinophils (%) (Auto) 0.1 0.0-8.0 % Basophils (%) (Auto) 0.5 0.0-5.0 % Neutrophils # (Auto) 8.3 H 1.8-7.7 K/uL Lymphocytes # (Auto) 0.8 L 1.0-4.8 K/uL Monocytes # (Auto) 0.6 0.1-1.0 K/uL Eosinophils # (Auto) 0.01 0.00-0.70 K/uL Basophils # (Auto) 0.05 0.00-0.20 K/uL Absolute Immature Granulocyte (auto 0.04 0-1 K/uL Nucleated Red Blood Cells 0.0 0.0-0.19 % White Cell Morphology Comment See comments Erythrocyte Sedimentation Rate 40 H 0-20 MM/HR Chemistry Labs: Test 10/09/24 14:23 10/09/24 04:29 10/08/24 06:06 10/08/24 00:50 Range/Units Sodium Level 137 136-145 mmol/L Potassium Level 5.7 H 3.5-5.1 mmol/L Chloride Level 102 101-111 mmol/L Carbon Dioxide Level 25 21-32 mmol/L Blood Urea Nitrogen 70 H 7-18 mg/dL Creatinine 6.0 H 0.5-1.0 mg/dL Glomerular Filtration Rate Calc 8 >90 mL/min Random Glucose 84 70-105 mg/dL Total Calcium 8.3 L 8.5-10.1 mg/dL Phosphorus Level 6.1 H 2.5-4.9 mg/dL Magnesium Level 1.80 1.80-2.40 mg/dL Lactate Dehydrogenase 175 81-234 U/L C-Reactive Protein, Quantitative 75.90 H 0.5-3.0 mg/L B-Type Natriuretic Peptide 739 H 0-100 pg/mL Thyroid Stimulating Hormone (TSH) 1.79 0.36-3.74 uIU/mL Serum Test, Qualitative NEGATIVE NEGATIVE Hemoglobin A1c 5.7 4.0-6.0 % Estimated Average Glucose (eAG) 117 70-126 mg/dL Uric Acid 7.6 H 2.6-7.2 mg/dL Total Creatine Kinase 38 21-232 U/L Troponin I High Sensitivity 49.4 4-50 ng/L Procalcitonin 2.71 H 0.05-0.5 ng/mL Coagulation Labs: Test 10/09/24 04:29 10/08/24 06:06 Range/Units Prothrombin Time 11.9 H 9.6-11.6 SEC Prothromb Time International Ratio 1.07 0.85-1.15 Activated Partial Thromboplast Time 28.7 26.3-35.5 SEC ASSESSMENT: Acute on chronic renal failure Anemia Hyperkalemia Acute hypoxic respiratory failure Hypertension Pericardial effusion, circumferential Cardiac tamponade Pleural effusion, left-sided PLAN: Labs, diagnostic, radiologic exams reviewed and interpreted by myself and supervising physician. We have reviewed external records in detail Obtain UA and complete renal ultrasound Social service consult for outpatient dialysis qualification. Obtain records from head stock transfer clerk and renal biopsy results Start Nephro-Belia daily Dietary consult for renal diet. Require close monitoring of renal function and electrolytes Order CBC, CMP, uric acid, TSH, complete iron panel, ferritin, PTH and electrolytes in am Renal diet BiPAP as necessary, for respiratory distress IV pressors as needed Monitor blood pressure adjust medication doses as needed Avoid hypotensive episodes May use Dilaudid 0.5 mg IV every 6 hours as needed for severe pain Monitor blood sugars Strict intake, output, and daily weight should be monitored Please renally adjust medications Avoid nephrotoxic and nonsteroidal drugs Avoid contrast if possible Will continue to monitor renal function, anemia, electrolytes Treatment plan discussed with patient Questions were answered We have discussed with the other team physicians in detail about the care plan We will continue to monitor the patient closely Thank you for allowing us to participate in the care of this patient Total critical care time spent with patient, nursing staff, critical care team over 35 minute ATTESTATION BY PHYSICIAN I have seen and examined the patient. I reviewed the documentation, medical decision making, and treatment plan as noted by the mid-level provider above. I agree with the findings and plan of care. LEE RODRIGUEZ MD, [facility] Oct 09, 2024 15:42 LEE RODRIGUEZ MD Oct 09, 2024 19:07
--- NOTE | 2024-10-09 17:10 | NUR ---
ATTEMPTED CALL TO DR. TORRES'S OFFICE TO TRY AND FIND INFORMATION ON PATIENT INVESTIGATOR CLAIMS. NO ANSWER AT MD'S OFFICE.
[2024-10-10] VITALS (10 sets, daily range): BP systolic 119–184; BP diastolic 61–86; PULSE 72–90; RESP 16–20; TEMP 97.8–98.6; O2SAT 95–100
[2024-10-10 03:54] LABS: HEMATOCRIT 33.6 % (36-48); MEAN CORPUSCULAR HEMOGLOBIN 28.9 pg (27.0-33.0); MEAN CORPUSCULAR HGB CONC 32.4 g/dL (32.0-36.0); MEAN CORPUSCULAR VOLUME 89.1 fL (79-99); PLATELET COUNT (AUTO) 178 K/uL (130-400); RED BLOOD CELL COUNT(AUTO) 3.77 MIL/uL (4.00-5.50); RED CELL DISTRIBUTION WIDTH 15.6 % (11.0-15.5)
[2024-10-10 04:05] LABS: INR 1.1 (0.85-1.15); PROTHROMBIN TIME 12.2 SEC (9.6-11.6)
[2024-10-10 04:07] LABS: PARTIAL THROMBOPLASTIN TIME 33.7 SEC (26.3-35.5)
[2024-10-10 04:24] LABS: ASPARTATE AMINOTRANSFERASE 12 U/L (10-37); BILIRUBIN,TOTAL 0.3 mg/dL (0.2-1.0); CARBON DIOXIDE 25 mmol/L (21-32); CHLORIDE 103 mmol/L (101-111); CREATININE 6.3 mg/dL (0.5-1.0); FERRITIN 276 ng/mL (15-150); GLOMERULAR FILTR. RATE CALC 8 mL/min (>90); GLUCOSE,RANDOM 76 mg/dL (70-105); PHOSPHORUS 7.6 mg/dL (2.5-4.9); POTASSIUM 5.1 mmol/L (3.5-5.1); SODIUM SERUM 137 mmol/L (136-145); THYROID STIMULATING HORMONE 1.21 uIU/mL (0.36-3.74); TOTAL PROTEIN, SERUM 5.5 g/dL (6.0-8.3); UREA NITROGEN, BLOOD 73 mg/dL (7-18); URIC ACID 7.9 mg/dL (2.6-7.2)
[2024-10-10 04:40] LABS: ALANINE AMINOTRANSFERASE < 6 U/L (12-78)
[2024-10-10 04:43] LABS: % IRON SATURATION 6.4 % (22-44)
[2024-10-10 04:54] LABS: BASOPHILS % (MANUAL) 1 % (0-2); LYMPHOCYTES % (MANUAL) 8 % (22-44); MAN.DIFF COMMENT-IMPRESSION MANUAL DIFFERENTIAL; MONOCYTES % (MANUAL) 7 % (2-9); PLATELET MORPHOLOGY COMMENT ADEQUATE; REACTIVE LYMPHOCYTES 1 % (0-0); SEGMENTED NEUTROPHILS % 83 % (40-70); TOTAL CELLS COUNTED 100; WBC MORPHOLOGY REACTIVE LYMPHS 1+
[2024-10-10] MEDS: Vitamin B Complex/Vit C/Folic Acid PO SCH (08:34)
[2024-10-10] MEDS ORDERED: ATOR40TA71 PO (09:12)
[2024-10-10] MEDS ORDERED: METO-408 PO (09:12)
[2024-10-10] MEDS ORDERED: LISI10TA24 PO (09:12)
[2024-10-10] MEDS ORDERED: NIFE-79 PO (09:16)
--- NOTE | 2024-10-10 09:40 | PN ---
[facility] PROGRESS NOTE Date Patient Seen: Oct 10, 2024 Time of Visit: 09:36 Supervising Physician: Dr. Ferreira Primary Care Physician: [ ] Outpatient Specialists: [ ] Inpatient Consults: Dr. Damon PROBLEM LIST: Acute hypoxic respiratory failure, POA improved Hypertension, POA Uremic pericardial effusion, circumferential, POA s/p pericardial window on 10/08/24 Acute kidney injury on CKD 5 POA Cardiac tamponade, POA Pleural effusion, left-sided, POA History of gestational hypertension INTERVAL HISTORY: 10/08/2024: At the time of my evaluation, the patient was lying in bed. Vital signs today consistent elevated blood pressure, normal heart and respiratory r ate. Laboratory data showed a low WBC of 4.0. H and H 6.8/21.0 with a MCV of 88.2 and a MCH of 28.6. Platelet count 161. No sign of bleeding. Chemistry panel was negative. The patient is pending to undergo a pericardial window today. Staff nurse reports no acute events overnight. No other complaint. 10/09/2024: At the time of my evaluation, the patient is lying in bed. She is status post pericardial window on one 10/08/2024. Per the staff nurse, chest tube output overnight was approximately 300 mL. The patient's main complaint is chest wall pain on the right. Blood pressure readings showed elevated blood pressure systolic in the 170s. CBC showed improve H&H the 10.7/32.5 NS stable platelet count of 166. Chemistry panel showed elevated potassium count of 5.6 renal parameters showed a BUN of 68, creatinine of 6.0 and a GFR of 8. BNP level of 739. Microbiology data showed body fluids which are currently negative. Chest x-ray today showed chest tube in stable position, cardiomegaly and bilateral pleural effusion. Otherwise, no new complaint. 10/10/2024: At the time of my evaluation, the patient was lying in bed. The staff nurse reports no acute events overnight. The chest tube remains in place with an estimated 160 mL sanguinous output overnight plus a total urinary output of 700 mL. Negative balance of 660. Vital signs today showing elevated blood pressure systolic in the 170s. Laboratory data today shows a stable H&H of 10.9/33.6 with a platelet count of 178. Chemistry panel showed improved potassium to 5.1. Renal parameters showed BUN of , creatinine of 6.3. Iron studies show a iron level of nine, TIBC of 140 and a ferritin of 276. Total protein of 5.5 with a albumin of 2.0. PT 12.2, INR 1.10 and a PTT of 33.7. Microbiology data negative so far. No new imaging for review today. The patient reports feeling much better today. No other complaint. REVIEW OF SYSTEMS: 12 point ROS reviewed with patient. Pertinent positives mentioned above. Otherwise negative. PHYSICAL EXAM: GENERAL: alert, weak, awake oriented x 3 HEENT: EOMI, Sclera non icteric, moist mucosa NECK: Supple, no JVD, trachea midline LUNGS: Diminished right lung bruno HEART: Regular rate and rhythm. Normal S1 and S2, without murmurs ABD: Abdomen soft, nontender. Bowel sounds present EXT: No clubbing cyanosis or edema NEURO: Alert and oriented to person, follows commands Vital Signs (last 8hr) Date Time Temp Pulse Resp B/P (MAP) Pulse Ox O2 Delivery O2 Flow Rate FiO2 10/10/24 08:00 98.4 72 17 171/75 95 Room Air 0.0 10/10/24 03:51 98.2 90 20 150/79 95 Room Air 0.0 LABS: Hematology Labs: Test 10/10/24 03:44 10/09/24 04:29 Range/Units White Blood Count 9.0 4.8-10.8 K/uL Red Blood Count 3.77 L 4.00-5.50 MIL/uL Hemoglobin 10.9 L 12.0-16.0 g/dL Hematocrit 33.6 L 36-48 % Mean Corpuscular Volume 89.1 79-99 fL Mean Corpuscular Hemoglobin 28.9 27.0-33.0 pg Mean Corpuscular Hemoglobin Concent 32.4 32.0-36.0 g/dL Red Cell Distribution Width 15.6 H 11.0-15.5 % Platelet Count 178 130-400 K/uL Mean Platelet Volume 11.8 H 7.5-10.5 fL Segmented Neutrophils % 83 H 40-70 % Lymphocytes % (Manual) 8 L 22-44 % Monocytes % (Manual) 7 2-9 % Basophils % (Manual) 1 0-2 % Nucleated Red Blood Cells 0.0 0.0-0.19 % Differential Comment MANUAL DIFFERENTIAL Reactive Lymphocytes 1 H 0-0 % White Cell Morphology Comment REACTIVE LYMPHS 1+ Platelet Morphology Comment ADEQUATE Red Blood Cell Morphology See comments Immature Granulocyte % (Auto) 0.4 0-1 % Neutrophils (%) (Auto) 85.0 H 40.0-77.0 % Lymphocytes (%) (Auto) 7.9 L 21.0-51.0 % Monocytes (%) (Auto) 6.1 3.0-13.0 % Eosinophils (%) (Auto) 0.1 0.0-8.0 % Basophils (%) (Auto) 0.5 0.0-5.0 % Neutrophils # (Auto) 8.3 H 1.8-7.7 K/uL Lymphocytes # (Auto) 0.8 L 1.0-4.8 K/uL Monocytes # (Auto) 0.6 0.1-1.0 K/uL Eosinophils # (Auto) 0.01 0.00-0.70 K/uL Basophils # (Auto) 0.05 0.00-0.20 K/uL Absolute Immature Granulocyte (auto 0.04 0-1 K/uL Erythrocyte Sedimentation Rate 40 H 0-20 MM/HR Chemistry Labs: Test 10/10/24 04:27 10/10/24 03:44 10/09/24 04:29 Range/Units Whole Blood Glucose 98 70-110 MG/DL Sodium Level 137 136-145 mmol/L Potassium Level 5.1 3.5-5.1 mmol/L Chloride Level 103 101-111 mmol/L Carbon Dioxide Level 25 21-32 mmol/L Blood Urea Nitrogen 73 H 7-18 mg/dL Creatinine 6.3 H 0.5-1.0 mg/dL Glomerular Filtration Rate Calc 8 >90 mL/min Random Glucose 76 70-105 mg/dL Uric Acid 7.9 H 2.6-7.2 mg/dL Total Calcium 8.1 L 8.5-10.1 mg/dL Phosphorus Level 7.6 H 2.5-4.9 mg/dL Magnesium Level 1.90 1.80-2.40 mg/dL Iron Level 9 L 50-170 mcg/dL Total Iron Binding Capacity 140 L 250-450 mcg/dL Percent Iron Saturation 6.4 L 22-44 % Ferritin 276 H 15-150 ng/mL Total Bilirubin 0.3 0.2-1.0 mg/dL Aspartate Amino Transf (AST/SGOT) 12 10-37 U/L Alanine Aminotransferase (ALT/SGPT) < 6 L 12-78 U/L Alkaline Phosphatase 72 50-136 U/L Total Protein 5.5 L 6.0-8.3 g/dL Albumin 2.0 L 3.5-5.0 g/dL Thyroid Stimulating Hormone (TSH) 1.21 # 0.36-3.74 uIU/mL Lactate Dehydrogenase 175 81-234 U/L C-Reactive Protein, Quantitative 75.90 H 0.5-3.0 mg/L B-Type Natriuretic Peptide 739 H 0-100 pg/mL Coagulation Labs: Test 10/10/24 03:44 Range/Units Prothrombin Time 12.2 H 9.6-11.6 SEC Prothromb Time International Ratio 1.10 0.85-1.15 Activated Partial Thromboplast Time 33.7 26.3-35.5 SEC DIAGNOSTICS / RADIOLOGY RESULTS: [ ] PLAN 10/10/2024: For now, going to continue current management for the patient. The chest tube output is improving and can possibly be removed soon. We will follow up with CTS. The treating medical device assembler has been identified and we will request the records from that practice including the recent renal biopsy that was done. The potassium level improved and we will continue on the Lokelma for now would the H&H is stable and we will continue to monitor. We will follow the recommendation of the treating specialist. Seeing her home medications were received and we will resume blood pressure management with. We will continue to monitor the vital signs. We will continue to provide general supportive care, GI and DVT prophylaxis. Further orders per attending MD and hospital course. NEURO: Minimize central acting medications as possible. Maintain fall precautions, adequate lighting during the day PULMONARY: Supplemental 02 as needed. Maintain aspiration precautions at all times CARDIOVASCULAR: Follow hemodynamics. Vital signs per facility protocol GI & NUTRITION: Continue with nutritional support. Continue stool softeners and laxatives as needed. KIDNEYS & ELECTROLYTES: Strict monitoring of intake, output and overall fluid balance. Avoid nephrotoxic medications to the extent possible. Medications to be dosed according to renal function. Monitor electrolytes and replace as needed ENDOCRINE: Maintain blood glucose between 100-180 at all times. Hypoglycemia protocol in place INFECTIOUS DISEASE: Trend temperature, WBC and procalcitonin level Follow cultures, deescalate antibiotics as soon as possible. Panculture if new onset fever ONCOLOGY/HEMATOLOGY/COAGULATION: Monitor for s/s of bleeding Monitor hemoglobin, coagulation studies as needed SKIN: Pressure ulcer prevention per facility protocol Specialty mattress ORTHO/REHAB: Continue PT/OT Prophylaxis: Continue GI and DVT prophylaxis Code Status: Full Resuscitation Disposition: TBD Other: Total patient care time exceeds 35 minutes excluding all procedures. DAVE OSWALD NP Oct 10, 2024 09:40
--- NOTE | 2024-10-10 09:46 | PN ---
SUBJECTIVE: The patient is postop day #2 from a pericardial window. The patient was evaluated by Nephrology yesterday. The patient, however, has not sat up in a chair, got out of bed, stating that she felt dizzy. OBJECTIVE: VITAL SIGNS: She is afebrile. Her vital signs are stable. The patient ____ is hypertensive. HEENT: Reveals normocephalic, atraumatic. She is on room air. HEART: S1, S2 with mild rub. Her subxiphoid wound is bandaged. Her chest tubes are in place with 150 mL of total output from her pericardium and right chest combined. ABDOMEN: Reveals mild obesity. LABORATORY DATA: BUN is 73 and her creatinine is 6.3. ASSESSMENT AND PLAN: Status post pericardial window. If the patient has not fully interact and this does not allow her to empty of the drain cavities, the chest tube will stay in place and on waterseal. Get the patient up out of bed today. ____ renal insufficiency. Appreciate input from Nephrology. Continue to monitor the electrolytes. TID: [id number] RECEIPT: [id number]
[2024-10-10] MEDS: MAGNESIUM 2GM PREMIX 50ML 50 ML IV SCH (11:24)
[2024-10-10] MEDS: metOPROLol sucCINATE 25 MG TAB.SR.24H PO SCH (11:24)
--- NOTE | 2024-10-10 14:13 | NUR ---
[facility] sw spoke to Kamron at [facility]. Kamron was able to visit with pt yesterday and do some safety planning. Pt will not go into senior care without her daughter. Kamron explained to pt what she would need to bring with her for herself and daughter to senior care. Pt was given Hotline # to call when she had daughter and was ready for placement. Pt was also told that senior care has stairs and pt would be required to climb stairs and care for herself and daughter at senior care. [facility]sp stay is for 30days only and that would give pt time to plan for her step move.
[2024-10-10 14:39] LABS: ALBUMIN 1.9 g/dL (3.5-5.0); ASPARTATE AMINOTRANSFERASE 10 U/L (10-37); BILIRUBIN,TOTAL 0.2 mg/dL (0.2-1.0); CARBON DIOXIDE 27 mmol/L (21-32); CHLORIDE 98 mmol/L (101-111); CREATININE 6.4 mg/dL (0.5-1.0); GLOMERULAR FILTR. RATE CALC 8 mL/min (>90); GLUCOSE,RANDOM 146 mg/dL (70-105); POTASSIUM 5.1 mmol/L (3.5-5.1); SODIUM SERUM 132 mmol/L (136-145); TOTAL PROTEIN, SERUM 5.7 g/dL (6.0-8.3)
[2024-10-10 14:40] LABS: ALANINE AMINOTRANSFERASE < 6 U/L (12-78)
[2024-10-10 14:43] LABS: UREA NITROGEN, BLOOD 79 mg/dL (7-18)
--- NOTE | 2024-10-10 15:06 | PN ---
NEPHROLOGY PROGRESS NOTE Date/Time Patient Seen: Oct 10, 2024 SUBJECTIVE: This is a 39-year-old female with a past medical history of gestational hypertension Patient was transferred from [facility] for CT evaluation for pericardial effusion and possible pericardial window. She presented to [facility] Emergency room with complaints of sudden shortness of breath. She was found to be hypertensive according Cardene drip. 2D echo revealed found to have moderate to large circumferential pericardial effusion with right ventricular early diastolic collapse suggestive of cardiac tamponade. There is also large left-sided pleural effusion. S/p pericardial window with 400 mL removed, 100 mL were sent for cytology. She was noted to have elevated BUN/creatinine. We have been consulted for renal failure. Renal function remains elevated Electrolytes and hemoglobin are stable. Patient is aware of kidney problems states she had a biopsy done by instructor trainer canine service Patient not does not remember biopsy results or instructor trainer canine service name. Pending medical records requested from instructor trainer canine service. She was seen in the medical floor, in no acute distress No Family at the bedside Prognosis remains guarded REVIEW OF SYSTEMS: GENERAL: Negative for any nausea, vomiting, fevers, chills, or weight loss. NEUROLOGIC: Negative for any blurry vision, blind spots, double vision, facial asymmetry, dysphagia, dysarthria, hemiparesis, hemisensory deficits, vertigo, ataxia. HEENT: Negative for any head trauma, neck trauma, neck stiffness, photophobia, phonophobia, sinusitis, rhinitis. CARDIAC: Negative for any chest pain, dyspnea on exertion, paroxysmal nocturnal dyspnea, peripheral edema. PULMONARY: Negative for any shortness of breath, wheezing, COPD, or TB exposure. GASTROINTESTINAL: Negative for any abdominal pain, nausea, vomiting, bright red blood per rectum, melena. GENITOURINARY: Negative for any dysuria, hematuria, incontinence. INTEGUMENTARY: Negative for any rashes, cuts, insect bites. RHEUMATOLOGIC: Negative for any joint pains, photosensitive rashes, history of vasculitis or kidney problems. HEMATOLOGIC: Negative for any abnormal bruising, frequent infections or bleeding. PHYSICAL EXAM: GENERAL: Alert and oriented x 3. No acute distress. Well-nourished. EYES: EOMI. Anicteric. HENT: Moist mucous membranes. No scleral icterus. No cervical lymphadenopathy. LUNGS: Clear to auscultation bilaterally. No accessory muscle use. CARDIOVASCULAR: Regular rate and rhythm. No murmur. No JVD. ABDOMEN: Soft, non-tender and non-distended. No palpable masses. EXTREMITIES: No edema. Non-tender. SKIN: No rashes or lesions. Warm. NEUROLOGIC: No focal neurological deficits. CN II-XII grossly intact, but not individually tested. PSYCHIATRIC: Cooperative. Appropriate mood and affect. LABORATORY: [ ] Hematology Labs: Test 10/10/24 03:44 10/09/24 04:29 Range/Units White Blood Count 9.0 4.8-10.8 K/uL Red Blood Count 3.77 L 4.00-5.50 MIL/uL Hemoglobin 10.9 L 12.0-16.0 g/dL Hematocrit 33.6 L 36-48 % Mean Corpuscular Volume 89.1 79-99 fL Mean Corpuscular Hemoglobin 28.9 27.0-33.0 pg Mean Corpuscular Hemoglobin Concent 32.4 32.0-36.0 g/dL Red Cell Distribution Width 15.6 H 11.0-15.5 % Platelet Count 178 130-400 K/uL Mean Platelet Volume 11.8 H 7.5-10.5 fL Segmented Neutrophils % 83 H 40-70 % Lymphocytes % (Manual) 8 L 22-44 % Monocytes % (Manual) 7 2-9 % Basophils % (Manual) 1 0-2 % Nucleated Red Blood Cells 0.0 0.0-0.19 % Differential Comment MANUAL DIFFERENTIAL Reactive Lymphocytes 1 H 0-0 % White Cell Morphology Comment REACTIVE LYMPHS 1+ Platelet Morphology Comment ADEQUATE Red Blood Cell Morphology See comments Immature Granulocyte % (Auto) 0.4 0-1 % Neutrophils (%) (Auto) 85.0 H 40.0-77.0 % Lymphocytes (%) (Auto) 7.9 L 21.0-51.0 % Monocytes (%) (Auto) 6.1 3.0-13.0 % Eosinophils (%) (Auto) 0.1 0.0-8.0 % Basophils (%) (Auto) 0.5 0.0-5.0 % Neutrophils # (Auto) 8.3 H 1.8-7.7 K/uL Lymphocytes # (Auto) 0.8 L 1.0-4.8 K/uL Monocytes # (Auto) 0.6 0.1-1.0 K/uL Eosinophils # (Auto) 0.01 0.00-0.70 K/uL Basophils # (Auto) 0.05 0.00-0.20 K/uL Absolute Immature Granulocyte (auto 0.04 0-1 K/uL Erythrocyte Sedimentation Rate 40 H 0-20 MM/HR Chemistry Labs: Test 10/10/24 13:52 10/10/24 11:34 10/10/24 03:44 10/09/24 04:29 Range/Units Sodium Level 132 L 136-145 mmol/L Potassium Level 5.1 3.5-5.1 mmol/L Chloride Level 98 L 101-111 mmol/L Carbon Dioxide Level 27 21-32 mmol/L Blood Urea Nitrogen 79 *H 7-18 mg/dL Creatinine 6.4 H 0.5-1.0 mg/dL Glomerular Filtration Rate Calc 8 >90 mL/min Random Glucose 146 #H 70-105 mg/dL Total Calcium 8.0 L 8.5-10.1 mg/dL Total Bilirubin 0.2 # 0.2-1.0 mg/dL Aspartate Amino Transf (AST/SGOT) 10 10-37 U/L Alanine Aminotransferase (ALT/SGPT) < 6 L 12-78 U/L Alkaline Phosphatase 65 50-136 U/L Total Protein 5.7 L 6.0-8.3 g/dL Albumin 1.9 L 3.5-5.0 g/dL Whole Blood Glucose 102 70-110 MG/DL Uric Acid 7.9 H 2.6-7.2 mg/dL Phosphorus Level 7.6 H 2.5-4.9 mg/dL Magnesium Level 1.90 1.80-2.40 mg/dL Iron Level 9 L 50-170 mcg/dL Total Iron Binding Capacity 140 L 250-450 mcg/dL Percent Iron Saturation 6.4 L 22-44 % Ferritin 276 H 15-150 ng/mL Thyroid Stimulating Hormone (TSH) 1.21 # 0.36-3.74 uIU/mL Lactate Dehydrogenase 175 81-234 U/L C-Reactive Protein, Quantitative 75.90 H 0.5-3.0 mg/L B-Type Natriuretic Peptide 739 H 0-100 pg/mL Coagulation Labs: Test 10/10/24 03:44 Range/Units Prothrombin Time 12.2 H 9.6-11.6 SEC Prothromb Time International Ratio 1.10 0.85-1.15 Activated Partial Thromboplast Time 33.7 26.3-35.5 SEC DIAGNOSTICS / RADIOLOGY: REASON: s/p pericardial window ORDERING PHYSICIAN: MICHAEL DEL ROSARIO MD PROCEDURE: CXR1VW - CHEST 1VW FRONTAL CHEST RADIOGRAPH INDICATION: s/p pericardial window COMPARISON: 10/08/2024 FINDINGS/IMPRESSION: dot compliance manager leads overlie the field of view. Heart is slightly enlarged, without pulmonary vascular congestion. Stable right chest tube, without pneumothorax. Small layering bilateral pleural effusions with subjacent passive atelectasis. DICTATED BY: JORGE BILLS MD DATE: 10/09/24 1126 REASON: s/p pericardial window ORDERING PHYSICIAN: MICHAEL DEL ROSARIO MD PROCEDURE: CXR1VW - CHEST 1VW CHEST 1VW HISTORY: Pericardial window COMPARISON: 10/06/2024 FINDINGS: A frontal projection of the chest was obtained. There are bilateral pulmonary infiltrates suggestive of pulmonary vascular congestion with possible superimposed pneumonitis. The heart is borderline enlarged. Poor inspiratory effort is seen. No evidence of aortic calcification is seen. IMPRESSION: 1. Bilateral pulmonary infiltrates are seen suggestive of pulmonary vascular congestion with possible superimposed pneumonitis. DICTATED BY: KARL DRISCOLL MD DATE: 10/08/24 1437 ASSESSMENT: Acute on chronic renal failure Anemia Hyperkalemia Acute hypoxic respiratory failure Hypertension Pericardial effusion, circumferential Cardiac tamponade Pleural effusion, left-sided PLAN: Labs, diagnostic, radiologic exams reviewed and interpreted by myself and supervising physician. We have reviewed external records in detail Start Venofer 300 mg IV daily x 3 doses. Discontinue lisinopril due to history of hyperkalemia, use alternative medication for hypertension management May use calcium channel blockers like amlodipine if needed Pending UA and complete renal ultrasound Social service consult for outpatient dialysis qualification. Pending medical records from instructor trainer canine service and renal biopsy results Dietary consult for renal diet. Require close monitoring of renal function and electrolytes Order CBC, CMP,and electrolytes in am Renal diet BiPAP as necessary, for respiratory distress Monitor blood pressure adjust medication doses as needed Avoid hypotensive episodes May use Dilaudid 0.5 mg IV every 6 hours as needed for severe pain Monitor blood sugars Strict intake, output, and daily weight should be monitored Please renally adjust medications Avoid nephrotoxic and nonsteroidal drugs Avoid contrast if possible Will continue to monitor renal function, anemia, electrolytes Treatment plan discussed with patient Questions were answered We have discussed with the other team physicians in detail about the care plan We will continue to monitor the patient closely ATTESTATION BY PHYSICIAN I have seen and examined the patient. I reviewed the documentation, medical decision making, and treatment plan as noted by the mid-level provider above. I agree with the findings and plan of care. LEE RODRIGUEZ MD, [facility] Oct 10, 2024 15:06
--- NOTE | 2024-10-10 15:07 | NUR ---
Nutritional Note: Pt denied any recent unintentional wt loss or poor appetite but dietary restrictions may increase risk of malnutrition. Pt with possible iron deficiency anemia with low iron 9mcg/dl, TIBc 140, and ferritin saturation 6.4%. Recommend: -Continue Renal non HD diet -Phosphate binder PRN -Nephrovite MVI -Iron Therapy if medically feasible -Educate prior to d/c based on discharge Renal status. - Electrolyte replacements per protocol -Monitor feeding tolerance, %, wt, and labs -If No BM >3days consider bowel stimulant. -Schedule outpatient RD f/u for long-term nutrition care. - Please notify RD if additional nutrition concerns arise. SEE RD Nutritional Assessment for additional assessment information. Addendum: 10/10/24 at [address] Amended: Links added.
--- NOTE | 2024-10-10 15:15 | NUR ---
SS f/u Sw visited with pt and verified all informed given by Kamron from [facility]. Pt states plan is to return home, gather items needed for jail and her daughter. Family to transport pt and daughter to [place] when ready. Sw again explained need for pt to be independent of her self care and care of daughter, as well as must be able to climb stairs at jail. Pt voiced understanding. Cathy trinidad
[2024-10-10] MEDS ORDERED: IRON sUCROse COMPLEX 100 MG/5 ML VIAL IVP SCH (15:30)
[2024-10-10] MEDS ORDERED: COMPOUND IV REFRIGERATED 1 EACH IVSOLN MISC PRN (16:00)
[2024-10-10] MEDS: IRON SUCROSE COMPLEX 300 MG+/NS 250ML IV SCH (17:04)
[2024-10-10] MEDS: atorVAStatin 40 MG TABLET PO SCH (20:37)
[2024-10-10] MEDS: acetaMINOPHEN 325 MG TAB PO PRN (20:38)
[2024-10-10] MEDS ORDERED: LISINOPRIL 10 MG TABLET PO SCH (21:00)
[2024-10-11] VITALS (11 sets, daily range): BP systolic 140–204; BP diastolic 71–91; PULSE 72–99; RESP 16–21; TEMP 97–98.7; O2SAT 97–98
[2024-10-11 04:45] LABS: ABG BASE EXCESS -3.3 mmol/L (-2.0-3.0); ABG HCO3 21.9 mmol/L (21.0-28.0); ABG PCO2 40 mmHg (32-45); ABG PH 7.356 (7.350-7.450); VENT MODE, BG ROOMAIR (ROOM AIR)
[2024-10-11 05:19] LABS: BASOPHILS # (AUTO) 0.04 K/uL (0.00-0.20); BASOPHILS % (AUTO) 0.6 % (0.0-5.0); EOSINOPHILS # (AUTO) 0.49 K/uL (0.00-0.70); EOSINOPHILS % (AUTO) 7.2 % (0.0-8.0); HEMATOCRIT 32.1 % (36-48); IMMATURE GRANULOCYTE ABSOLUTE 0.02 K/uL (0-1); LYMPHOCYTES # (AUTO) 1.2 K/uL (1.0-4.8); LYMPHOCYTES % (AUTO) 17.7 % (21.0-51.0); MEAN CORPUSCULAR HEMOGLOBIN 28.5 pg (27.0-33.0); MEAN CORPUSCULAR HGB CONC 32.4 g/dL (32.0-36.0); MEAN CORPUSCULAR VOLUME 87.9 fL (79-99); MONOCYTES # (AUTO) 0.6 K/uL (0.1-1.0); MONOCYTES % (AUTO) 8.7 % (3.0-13.0); NEUTROPHILS # (AUTO) 4.4 K/uL (1.8-7.7); NEUTROPHILS % (AUTO) 65.5 % (40.0-77.0); PLATELET COUNT (AUTO) 187 K/uL (130-400); RED BLOOD CELL COUNT(AUTO) 3.65 MIL/uL (4.00-5.50); RED CELL DISTRIBUTION WIDTH 14.9 % (11.0-15.5); WHITE BLOOD COUNT (AUTO) 6.8 K/uL (4.8-10.8)
[2024-10-11 05:37] LABS: CREATININE 6.6 mg/dL (0.5-1.0); MAGNESIUM 2.4 mg/dL (1.80-2.40); PHOSPHORUS 6.8 mg/dL (2.5-4.9); POTASSIUM 4.5 mmol/L (3.5-5.1)
[2024-10-11] MEDS: amLODIPine 5 MG TAB PO SCH (07:54)
[2024-10-11] MEDS ORDERED: metOPROLol sucCINATE 25 MG TAB.SR.24H PO SCH (09:00)
--- NOTE | 2024-10-11 10:16 | PN ---
[facility] PROGRESS NOTE Date Patient Seen: Oct 11, 2024 Time of Visit: 10:15 Supervising Physician: Dr. Mir Hamilton Primary Care Physician: No PCP Outpatient Specialists: [ ] Inpatient Consults: Dr. Damon PROBLEM LIST: Acute hypoxemic respiratory failure, POA improved Pericardial effusion with cardiac tamponade, circumferential, POA s/p pericardial window on 10/08/24 Acute kidney injury on CKD 5, POA Pleural effusion, left-sided, POA Hypertension, uncontrolled, POA History of gestational hypertension INTERVAL HISTORY: Patient was assessed at bedside. AAOX3. Currently on room air. Able to voice needs and follow commands. Blood pressure not controlled, started on amlodipine and hydralazine due to blood pressure in the 200's. Pending pericardial window be removed per CTS orders. Denies any chest pain, SOB, abdominal pain, nausea or vomiting. Creatinine increased to 6.6 from 6.4, GFR 8. States she is urinating minimally. Nephrology is on board. Family member at bedside. Disposition is home. No overnight issues per nursing. REVIEW OF SYSTEMS: 12 point ROS reviewed with patient. Pertinent positives mentioned above. Otherwise negative. PHYSICAL EXAM: GENERAL: alert, weak, awake oriented x 3 HEENT: EOMI, Sclera non icteric, moist mucosa NECK: Supple, no JVD, trachea midline LUNGS: Diminished right lung bruno HEART: Regular rate and rhythm. Normal S1 and S2, without murmurs ABD: Abdomen soft, nontender. Bowel sounds present EXT: No clubbing cyanosis or edema NEURO: AAOx3, follows commands Vital Signs (last 8hr) Date Time Temp Pulse Resp B/P (MAP) Pulse Ox O2 Delivery O2 Flow Rate FiO2 10/11/24 07:59 98.2 81 18 204/91 97 Room Air 10/11/24 07:31 79 18 N/A Room Air 21 10/11/24 04:00 98.6 81 18 140/71 98 Room Air LABS: Hematology Labs: Test 10/11/24 05:08 10/10/24 03:44 Range/Units White Blood Count 6.8 4.8-10.8 K/uL Red Blood Count 3.65 L 4.00-5.50 MIL/uL Hemoglobin 10.4 L 12.0-16.0 g/dL Hematocrit 32.1 L 36-48 % Mean Corpuscular Volume 87.9 79-99 fL Mean Corpuscular Hemoglobin 28.5 27.0-33.0 pg Mean Corpuscular Hemoglobin Concent 32.4 32.0-36.0 g/dL Red Cell Distribution Width 14.9 11.0-15.5 % Platelet Count 187 130-400 K/uL Mean Platelet Volume 12.2 H 7.5-10.5 fL Immature Granulocyte % (Auto) 0.3 0-1 % Neutrophils (%) (Auto) 65.5 40.0-77.0 % Lymphocytes (%) (Auto) 17.7 L 21.0-51.0 % Monocytes (%) (Auto) 8.7 3.0-13.0 % Eosinophils (%) (Auto) 7.2 0.0-8.0 % Basophils (%) (Auto) 0.6 0.0-5.0 % Neutrophils # (Auto) 4.4 1.8-7.7 K/uL Lymphocytes # (Auto) 1.2 1.0-4.8 K/uL Monocytes # (Auto) 0.6 0.1-1.0 K/uL Eosinophils # (Auto) 0.49 0.00-0.70 K/uL Basophils # (Auto) 0.04 0.00-0.20 K/uL Absolute Immature Granulocyte (auto 0.02 0-1 K/uL Nucleated Red Blood Cells 0.0 0.0-0.19 % Segmented Neutrophils % 83 H 40-70 % Lymphocytes % (Manual) 8 L 22-44 % Monocytes % (Manual) 7 2-9 % Basophils % (Manual) 1 0-2 % Differential Comment MANUAL DIFFERENTIAL Reactive Lymphocytes 1 H 0-0 % White Cell Morphology Comment REACTIVE LYMPHS 1+ Platelet Morphology Comment ADEQUATE Red Blood Cell Morphology See comments Chemistry Labs: Test 10/11/24 05:08 10/10/24 13:52 10/10/24 11:34 10/10/24 03:44 Range/Units Sodium Level 130 L 136-145 mmol/L Potassium Level 4.5 3.5-5.1 mmol/L Chloride Level 98 L 101-111 mmol/L Carbon Dioxide Level 24 21-32 mmol/L Blood Urea Nitrogen 79 *H 7-18 mg/dL Creatinine 6.6 H 0.5-1.0 mg/dL Glomerular Filtration Rate Calc 8 >90 mL/min Random Glucose 96 70-105 mg/dL Total Calcium 7.5 L 8.5-10.1 mg/dL Phosphorus Level 6.8 H 2.5-4.9 mg/dL Magnesium Level 2.40 1.80-2.40 mg/dL Total Bilirubin 0.2 # 0.2-1.0 mg/dL Aspartate Amino Transf (AST/SGOT) 10 10-37 U/L Alanine Aminotransferase (ALT/SGPT) < 6 L 12-78 U/L Alkaline Phosphatase 65 50-136 U/L Total Protein 5.7 L 6.0-8.3 g/dL Albumin 1.9 L 3.5-5.0 g/dL Whole Blood Glucose 102 70-110 MG/DL Uric Acid 7.9 H 2.6-7.2 mg/dL Iron Level 9 L 50-170 mcg/dL Total Iron Binding Capacity 140 L 250-450 mcg/dL Percent Iron Saturation 6.4 L 22-44 % Ferritin 276 H 15-150 ng/mL Thyroid Stimulating Hormone (TSH) 1.21 # 0.36-3.74 uIU/mL Parathyroid Hormone (Intact) 249.1 15-65 pg/mL Coagulation Labs: Test 10/10/24 03:44 Range/Units Prothrombin Time 12.2 H 9.6-11.6 SEC Prothromb Time International Ratio 1.10 0.85-1.15 Activated Partial Thromboplast Time 33.7 26.3-35.5 SEC DIAGNOSTICS / RADIOLOGY RESULTS: NA PLAN Started on Hydralazine 25mg PO TID Started on amlodipine 5mg PO daily Continue on metoprolol We will continue to monitor the vital signs. We will continue to provide general supportive care, GI and DVT prophylaxis. Further orders per attending MD and hospital course. NEURO: Minimize central acting medications as possible. Maintain fall precautions, adequate lighting during the day PULMONARY: Supplemental 02 as needed. Maintain aspiration precautions at all times CARDIOVASCULAR: Follow hemodynamics. Vital signs per facility protocol GI & NUTRITION: Continue with nutritional support. Continue stool softeners and laxatives as needed. KIDNEYS & ELECTROLYTES: Strict monitoring of intake, output and overall fluid balance. Avoid nephrotoxic medications to the extent possible. Medications to be dosed according to renal function. Monitor electrolytes and replace as needed ENDOCRINE: Maintain blood glucose between 100-180 at all times. Hypoglycemia protocol in place INFECTIOUS DISEASE: Trend temperature, WBC and procalcitonin level Follow cultures, deescalate antibiotics as soon as possible. Panculture if new onset fever ONCOLOGY/HEMATOLOGY/COAGULATION: Monitor for s/s of bleeding Monitor hemoglobin, coagulation studies as needed SKIN: Pressure ulcer prevention per facility protocol Specialty mattress ORTHO/REHAB: Continue PT/OT Prophylaxis: Continue GI and DVT prophylaxis Code Status: Full Resuscitation Disposition: SANTANA ESCOBAR Oct 11, 2024 10:16
--- NOTE | 2024-10-11 11:15 | PN ---
NEPHROLOGY PROGRESS NOTE Date/Time Patient Seen: Oct 11, 2024 Reason for Consultation: 11:15 SUBJECTIVE: This is a 39-year-old female with a past medical history of gestational hypertension Patient was transferred from [facility] for CT evaluation for pericardial effusion and possible pericardial window. She presented to [facility] Emergency room with complaints of sudden shortness of breath. She was found to be hypertensive according Cardene drlesley. 2D echo revealed found to have moderate to large circumferential pericardial effusion with right ventricular early diastolic collapse suggestive of cardiac tamponade. There is also large left-sided pleural effusion. S/p pericardial window with 400 mL removed, 100 mL were sent for cytology. Chest tube has been removed. She was noted to have elevated BUN/creatinine. We have been consulted for renal failure. Renal function remains elevated Electrolytes and hemoglobin are stable. Patient is aware of kidney problems states she had a biopsy done by associate attorney Patient not does not remember biopsy results or associate attorney name. Pending medical records requested from associate attorney. Pending UA. She was seen in the medical floor, in no acute distress No Family at the bedside Prognosis remains guarded REVIEW OF SYSTEMS: GENERAL: Negative for any nausea, vomiting, fevers, chills, or weight loss. NEUROLOGIC: Negative for any blurry vision, blind spots, double vision, facial asymmetry, dysphagia, dysarthria, hemiparesis, hemisensory deficits, vertigo, ataxia. HEENT: Negative for any head trauma, neck trauma, neck stiffness, photophobia, phonophobia, sinusitis, rhinitis. CARDIAC: Negative for any chest pain, dyspnea on exertion, paroxysmal nocturnal dyspnea, peripheral edema. PULMONARY: Negative for any shortness of breath, wheezing, COPD, or TB exposure. GASTROINTESTINAL: Negative for any abdominal pain, nausea, vomiting, bright red blood per rectum, melena. GENITOURINARY: Negative for any dysuria, hematuria, incontinence. INTEGUMENTARY: Negative for any rashes, cuts, insect bites. RHEUMATOLOGIC: Negative for any joint pains, photosensitive rashes, history of vasculitis or kidney problems. HEMATOLOGIC: Negative for any abnormal bruising, frequent infections or bleeding. PHYSICAL EXAM: GENERAL: Alert and oriented x 3. No acute distress. Well-nourished. EYES: EOMI. Anicteric. HENT: Moist mucous membranes. No scleral icterus. No cervical lymphadenopathy. LUNGS: Clear to auscultation bilaterally. No accessory muscle use. CARDIOVASCULAR: Regular rate and rhythm. No murmur. No JVD. ABDOMEN: Soft, non-tender and non-distended. No palpable masses. EXTREMITIES: No edema. Non-tender. SKIN: No rashes or lesions. Warm. NEUROLOGIC: No focal neurological deficits. CN II-XII grossly intact, but not individually tested. PSYCHIATRIC: Cooperative. Appropriate mood and affect. LABORATORY: [ ] Hematology Labs: Test 10/11/24 05:08 10/10/24 03:44 Range/Units White Blood Count 6.8 4.8-10.8 K/uL Red Blood Count 3.65 L 4.00-5.50 MIL/uL Hemoglobin 10.4 L 12.0-16.0 g/dL Hematocrit 32.1 L 36-48 % Mean Corpuscular Volume 87.9 79-99 fL Mean Corpuscular Hemoglobin 28.5 27.0-33.0 pg Mean Corpuscular Hemoglobin Concent 32.4 32.0-36.0 g/dL Red Cell Distribution Width 14.9 11.0-15.5 % Platelet Count 187 130-400 K/uL Mean Platelet Volume 12.2 H 7.5-10.5 fL Immature Granulocyte % (Auto) 0.3 0-1 % Neutrophils (%) (Auto) 65.5 40.0-77.0 % Lymphocytes (%) (Auto) 17.7 L 21.0-51.0 % Monocytes (%) (Auto) 8.7 3.0-13.0 % Eosinophils (%) (Auto) 7.2 0.0-8.0 % Basophils (%) (Auto) 0.6 0.0-5.0 % Neutrophils # (Auto) 4.4 1.8-7.7 K/uL Lymphocytes # (Auto) 1.2 1.0-4.8 K/uL Monocytes # (Auto) 0.6 0.1-1.0 K/uL Eosinophils # (Auto) 0.49 0.00-0.70 K/uL Basophils # (Auto) 0.04 0.00-0.20 K/uL Absolute Immature Granulocyte (auto 0.02 0-1 K/uL Nucleated Red Blood Cells 0.0 0.0-0.19 % Segmented Neutrophils % 83 H 40-70 % Lymphocytes % (Manual) 8 L 22-44 % Monocytes % (Manual) 7 2-9 % Basophils % (Manual) 1 0-2 % Differential Comment MANUAL DIFFERENTIAL Reactive Lymphocytes 1 H 0-0 % White Cell Morphology Comment REACTIVE LYMPHS 1+ Platelet Morphology Comment ADEQUATE Red Blood Cell Morphology See comments Chemistry Labs: Test 10/11/24 05:08 10/10/24 13:52 10/10/24 11:34 10/10/24 03:44 Range/Units Sodium Level 130 L 136-145 mmol/L Potassium Level 4.5 3.5-5.1 mmol/L Chloride Level 98 L 101-111 mmol/L Carbon Dioxide Level 24 21-32 mmol/L Blood Urea Nitrogen 79 *H 7-18 mg/dL Creatinine 6.6 H 0.5-1.0 mg/dL Glomerular Filtration Rate Calc 8 >90 mL/min Random Glucose 96 70-105 mg/dL Total Calcium 7.5 L 8.5-10.1 mg/dL Phosphorus Level 6.8 H 2.5-4.9 mg/dL Magnesium Level 2.40 1.80-2.40 mg/dL Total Bilirubin 0.2 # 0.2-1.0 mg/dL Aspartate Amino Transf (AST/SGOT) 10 10-37 U/L Alanine Aminotransferase (ALT/SGPT) < 6 L 12-78 U/L Alkaline Phosphatase 65 50-136 U/L Total Protein 5.7 L 6.0-8.3 g/dL Albumin 1.9 L 3.5-5.0 g/dL Whole Blood Glucose 102 70-110 MG/DL Uric Acid 7.9 H 2.6-7.2 mg/dL Iron Level 9 L 50-170 mcg/dL Total Iron Binding Capacity 140 L 250-450 mcg/dL Percent Iron Saturation 6.4 L 22-44 % Ferritin 276 H 15-150 ng/mL Thyroid Stimulating Hormone (TSH) 1.21 # 0.36-3.74 uIU/mL Parathyroid Hormone (Intact) 249.1 15-65 pg/mL Coagulation Labs: Test 10/10/24 03:44 Range/Units Prothrombin Time 12.2 H 9.6-11.6 SEC Prothromb Time International Ratio 1.10 0.85-1.15 Activated Partial Thromboplast Time 33.7 26.3-35.5 SEC DIAGNOSTICS / RADIOLOGY: REASON: s/p pericardial window ORDERING PHYSICIAN: MICHAEL DEL ROSARIO MD PROCEDURE: CXR1VW - CHEST 1VW FRONTAL CHEST RADIOGRAPH INDICATION: s/p pericardial window COMPARISON: 10/08/2024 FINDINGS/IMPRESSION: hospital monitor leads overlie the field of view. Heart is slightly enlarged, without pulmonary vascular congestion. Stable right chest tube, without pneumothorax. Small layering bilateral pleural effusions with subjacent passive atelectasis. DICTATED BY: JORGE BILLS MD DATE: 10/09/24 1126 REASON: s/p pericardial window ORDERING PHYSICIAN: MICHAEL DEL ROSARIO MD PROCEDURE: CXR1VW - CHEST 1VW CHEST 1VW HISTORY: Pericardial window COMPARISON: 10/06/2024 FINDINGS: A frontal projection of the chest was obtained. There are bilateral pulmonary infiltrates suggestive of pulmonary vascular congestion with possible superimposed pneumonitis. The heart is borderline enlarged. Poor inspiratory effort is seen. No evidence of aortic calcification is seen. IMPRESSION: 1. Bilateral pulmonary infiltrates are seen suggestive of pulmonary vascular congestion with possible superimposed pneumonitis. DICTATED BY: KARL DRISCOLL MD DATE: 10/08/24 1437 ASSESSMENT: Acute on chronic renal failure Fluid overload Anemia Hyperkalemia Acute hypoxic respiratory failure Hypertension Pericardial effusion, circumferential Cardiac tamponade Pleural effusion, left-sided PLAN: Labs, diagnostic, radiologic exams reviewed and interpreted by myself and supervising physician. We have reviewed external records in detail There is no need for emergent renal replacement therapy. Give Lasix 80 mg IV Continue with Venofer 300 mg IV daily x 3 doses. Pending UA, urine protein, creatinine, and complete renal ultrasound Social service consult for outpatient dialysis qualification. Pending medical records from associate attorney and renal biopsy results Require close monitoring of renal function and electrolytes Order CBC, CMP,and electrolytes in am Continue with renal diet BiPAP as necessary, for respiratory distress Monitor blood pressure adjust medication doses as needed Avoid hypotensive episodes May use Dilaudid 0.5 mg IV every 6 hours as needed for severe pain Monitor blood sugars Strict intake, output, and daily weight should be monitored Please renally adjust medications Avoid nephrotoxic and nonsteroidal drugs Avoid contrast if possible Will continue to monitor renal function, anemia, electrolytes Treatment plan discussed with patient Questions were answered We have discussed with the other team physicians in detail about the care plan We will continue to monitor the patient closely ATTESTATION BY PHYSICIAN I have seen and examined the patient. I reviewed the documentation, medical decision making, and treatment plan as noted by the mid-level provider above. I agree with the findings and plan of care. LEE RODRIGUEZ MD, [facility] Oct 11, 2024 11:15
[2024-10-11 13:13] LABS: APPEARANCE,URINE CLOUDY (CLEAR); BILIRUBIN,URINE NEGATIVE (NEGATIVE); COLOR,URINE LIGHT-ORANGE (YELLOW); GLUCOSE, URINE (UA) 50 mg/dL (NEGATIVE); KETONES,URINE NEGATIVE (NEGATIVE); LEUKOCYTE ESTERASE ,URINE 250 Leu/uL (NEGATIVE); NITRATE,URINE NEGATIVE (NEGATIVE); OCCULT BLOOD,URINE LARGE (NEGATIVE); PROTEIN,URINE 300 mg/dL (NEGATIVE); UROBILINOGEN,URINE 0.2 mg/dL (0.2-1.0)
[2024-10-11 13:16] LABS: ADD UA MICROSCOPIC YES
[2024-10-11] MEDS: furoSEMIDE 20MG VIAL IV ONE (13:21)
[2024-10-11 13:22] LABS: BACTERIA,URINE RARE /HPF (None Seen); SQUAMOUS EPITHELIAL CELL,UR RARE /HPF (0-2); WBC,URINE 26-50 /HPF (0-1)
[2024-10-11] MEDS: HEParin 5,000 UNIT VIAL SQ SCH (13:26)
[2024-10-11 13:38] LABS: PROTEIN,URINE RANDOM 435.1 mg/dL (0-11.9)
[2024-10-11] MEDS: hydrALAZine 25MG TABLET PO SCH (15:05)
[2024-10-11 15:11] LABS: ATYPICAL P-ANCA AB <1:20 titer (Neg:<1:20); CYTOPLASMIC (C-ANCA) AB, IGG <1:20 titer (Neg:<1:20)
[2024-10-11] MEDS: LACTULOSE 20 GM/30 ML UDCUP PO ONE (16:24)
[2024-10-11] MEDS: AZITHROMYCIN 500MG+NS 250ML 250 ML IVPB SCH (16:25)
--- NOTE | 2024-10-11 20:30 | PN ---
SUBJECTIVE: The patient is postop day #3 from a pericardial window. The patient remains with her chest tubes in place and is doing well; however, her creatinine continues to increase. OBJECTIVE: VITAL SIGNS: She is afebrile. Vital signs are stable other than her high blood pressure. HEENT: Reveals to be normocephalic, atraumatic. Extraocular movements intact. She is off nasal cannula oxygen. HEART: S1, S2 with mild rub. CHEST: Her subxiphoid wound is bandaged. Her chest tubes in place with 255 mL of output from the right pleural space and her pericardium over the last 24 hours. ABDOMEN: Reveals mild obesity. LABORATORY DATA: Creatinine is 6.6 up from 6.3 yesterday ASSESSMENT AND PLAN: * Status post pericardial window. We will discontinue pericardial drain. Get the patient up and out of bed. Ambulate in the halls. * Hypertension. Continue metoprolol, Norvasc and p.r.n. hydralazine. * Deep venous thrombosis prophylaxis. Begin heparin 5000 units subcutaneous b.i.d. * Renal insufficiency. Nephrology is following the patient. We will defer care to them. TID: [id number] RECEIPT: [id number]
[2024-10-12] VITALS (7 sets, daily range): BP systolic 155–180; BP diastolic 74–90; PULSE 71–80; RESP 16–20; TEMP 97–98.6; O2SAT 99
[2024-10-12 04:28] LABS: HEMATOCRIT 31.7 % (36-48); MEAN CORPUSCULAR HEMOGLOBIN 28.7 pg (27.0-33.0); MEAN CORPUSCULAR HGB CONC 32.2 g/dL (32.0-36.0); RED BLOOD CELL COUNT(AUTO) 3.56 MIL/uL (4.00-5.50); RED CELL DISTRIBUTION WIDTH 14.9 % (11.0-15.5); WHITE BLOOD COUNT (AUTO) 6.8 K/uL (4.8-10.8)
[2024-10-12 04:50] LABS: ALBUMIN 1.8 g/dL (3.5-5.0); BILIRUBIN,TOTAL 0.2 mg/dL (0.2-1.0); CREATININE 6.5 mg/dL (0.5-1.0); MAGNESIUM 2.3 mg/dL (1.80-2.40); POTASSIUM 4.5 mmol/L (3.5-5.1); TOTAL PROTEIN, SERUM 5.4 g/dL (6.0-8.3)
[2024-10-12] MEDS: amLODIPine 5 MG TAB PO SCH (09:26)
--- NOTE | 2024-10-12 09:27 | PN ---
SUBJECTIVE: The patient is postop day #4 from a pericardial window. Her chest drain was removed yesterday. She appears well and offers no complaints. OBJECTIVE: VITAL SIGNS: Reveal temperature 98.2, pulse 74, respirations 16, blood pressure is still elevated at 179/81, oxygen saturations are 96% on room air. HEENT: Reveals normocephalic, atraumatic. Extraocular movements intact. HEART: S1, S2 and regular. CHEST: Her subxiphoid wound is bandaged. Her chest tubes are out. ABDOMEN: Her abdomen reveals mild obesity with positive bowel sounds. LABORATORY DATA: Her BUN is 80, creatinine is 6.5, slightly down from 6.6 yesterday. ASSESSMENT AND PLAN: * Status post pericardial window. Her drain has been removed. The patient should have lifting restrictions for the next 6 weeks (no lifting greater than 10 to 15 pounds). We will follow the patient p.r.n. * Renal insufficiency. Nephrology is closely following the patient. Need for dialysis will be determined by them. * Hypertension. Continue metoprolol and hydralazine. We will increase the Norvasc from 5 to 10 mg every day. * Deep venous thrombosis prophylaxis. Heparin 5000 units subcutaneous b.i.d. TID: [id number] RECEIPT: [id number]
--- NOTE | 2024-10-12 09:29 | HMCIMG ---
PORTABLE CHEST RADIOGRAPH INDICATION: pleural effusion COMPARISON: 10/09/2024 FINDINGS: sanitation truck cleaner leads overlie the field of view. Heart size is normal. The pulmonary vascularity and lobo appear normal. No abnormal pulmonary parenchymal opacity or consolidation identified. Small 5% right pulmonary apical pneumothorax. Removal of right thoracostomy tube. No significant pleural effusion noted. IMPRESSION: Small 5% right pulmonary apical pneumothorax after removal of right thoracostomy tube. This examination was provided for interpretation at 7:18 AM. Above findings discussed with nurse Davis at 7:18 AM on 10/12/2024 via telephone prior to finalization of this report.
--- NOTE | 2024-10-12 09:45 | PN ---
NEPHROLOGY PROGRESS NOTE Date/Time Patient Seen: Oct 12, 2024 Reason for Consultation: 09:45 SUBJECTIVE: This is a 39-year-old female with a past medical history of gestational hypertension Patient was transferred from [facility] for CT evaluation for pericardial effusion and possible pericardial window. She presented to [facility] Emergency room with complaints of sudden shortness of breath. She was found to be hypertensive according Cardene drlesley. 2D echo revealed found to have moderate to large circumferential pericardial effusion with right ventricular early diastolic collapse suggestive of cardiac tamponade. There is also large left-sided pleural effusion. S/p pericardial window with 400 mL removed, 100 mL were sent for cytology. Chest tube has been removed. Chest x-ray showed Nominal decrease in right pulmonary apical pneumothorax She was noted to have elevated BUN/creatinine. Patient is aware of kidney problems states she had a biopsy done by slitter cut off operator Patient not does not remember biopsy results or slitter cut off operator name. Pending medical records requested from slitter cut off operator. We have been consulted for renal failure. Renal function remains elevated Electrolytes and hemoglobin are stable. Significant proteinuria noted. 4.7 g/day She received dose of Lasix yesterday, urine output was noted. She was seen in the medical floor No Family at the bedside Prognosis remains guarded REVIEW OF SYSTEMS: GENERAL: Negative for any nausea, vomiting, fevers, chills, or weight loss. NEUROLOGIC: Negative for any blurry vision, blind spots, double vision, facial asymmetry, dysphagia, dysarthria, hemiparesis, hemisensory deficits, vertigo, ataxia. HEENT: Negative for any head trauma, neck trauma, neck stiffness, photophobia, phonophobia, sinusitis, rhinitis. CARDIAC: Negative for any chest pain, dyspnea on exertion, paroxysmal nocturnal dyspnea, peripheral edema. PULMONARY: Negative for any shortness of breath, wheezing, COPD, or TB exposure. GASTROINTESTINAL: Negative for any abdominal pain, nausea, vomiting, bright red blood per rectum, melena. GENITOURINARY: Negative for any dysuria, hematuria, incontinence. INTEGUMENTARY: Negative for any rashes, cuts, insect bites. RHEUMATOLOGIC: Negative for any joint pains, photosensitive rashes, history of vasculitis or kidney problems. HEMATOLOGIC: Negative for any abnormal bruising, frequent infections or bleeding. PHYSICAL EXAM: GENERAL: Alert and oriented x 3. No acute distress. Well-nourished. EYES: EOMI. Anicteric. HENT: Moist mucous membranes. No scleral icterus. No cervical lymphadenopathy. LUNGS: Clear to auscultation bilaterally. No accessory muscle use. CARDIOVASCULAR: Regular rate and rhythm. No murmur. No JVD. ABDOMEN: Soft, non-tender and non-distended. No palpable masses. EXTREMITIES: No edema. Non-tender. SKIN: No rashes or lesions. Warm. NEUROLOGIC: No focal neurological deficits. CN II-XII grossly intact, but not individually tested. PSYCHIATRIC: Cooperative. Appropriate mood and affect. LABORATORY: [ ] Hematology Labs: Test 10/12/24 04:21 10/11/24 05:08 Range/Units White Blood Count 6.8 4.8-10.8 K/uL Red Blood Count 3.56 L 4.00-5.50 MIL/uL Hemoglobin 10.2 L 12.0-16.0 g/dL Hematocrit 31.7 L 36-48 % Mean Corpuscular Volume 89.0 79-99 fL Mean Corpuscular Hemoglobin 28.7 27.0-33.0 pg Mean Corpuscular Hemoglobin Concent 32.2 32.0-36.0 g/dL Red Cell Distribution Width 14.9 11.0-15.5 % Platelet Count 194 130-400 K/uL Mean Platelet Volume 11.7 H 7.5-10.5 fL Nucleated Red Blood Cells 0.0 0.0-0.19 % Immature Granulocyte % (Auto) 0.3 0-1 % Neutrophils (%) (Auto) 65.5 40.0-77.0 % Lymphocytes (%) (Auto) 17.7 L 21.0-51.0 % Monocytes (%) (Auto) 8.7 3.0-13.0 % Eosinophils (%) (Auto) 7.2 0.0-8.0 % Basophils (%) (Auto) 0.6 0.0-5.0 % Neutrophils # (Auto) 4.4 1.8-7.7 K/uL Lymphocytes # (Auto) 1.2 1.0-4.8 K/uL Monocytes # (Auto) 0.6 0.1-1.0 K/uL Eosinophils # (Auto) 0.49 0.00-0.70 K/uL Basophils # (Auto) 0.04 0.00-0.20 K/uL Absolute Immature Granulocyte (auto 0.02 0-1 K/uL Chemistry Labs: Test 10/12/24 04:21 10/11/24 11:44 10/11/24 05:08 Range/Units Sodium Level 133 L 136-145 mmol/L Potassium Level 4.5 3.5-5.1 mmol/L Chloride Level 99 L 101-111 mmol/L Carbon Dioxide Level 24 21-32 mmol/L Blood Urea Nitrogen 80 *H 7-18 mg/dL Creatinine 6.5 H 0.5-1.0 mg/dL Glomerular Filtration Rate Calc 8 >90 mL/min Random Glucose 95 70-105 mg/dL Total Calcium 7.4 L 8.5-10.1 mg/dL Magnesium Level 2.30 1.80-2.40 mg/dL Total Bilirubin 0.2 0.2-1.0 mg/dL Aspartate Amino Transf (AST/SGOT) 11 10-37 U/L Alanine Aminotransferase (ALT/SGPT) 3 L 12-78 U/L Alkaline Phosphatase 61 50-136 U/L Total Protein 5.4 L 6.0-8.3 g/dL Albumin 1.8 L 3.5-5.0 g/dL Whole Blood Glucose 103 70-110 MG/DL Phosphorus Level 6.8 H 2.5-4.9 mg/dL DIAGNOSTICS / RADIOLOGY: REASON: pneumothorax ORDERING PHYSICIAN: SANTANA CASTRO PROCEDURE: CXR1VW - CHEST 1VW FRONTAL CHEST RADIOGRAPH INDICATION: pneumothorax COMPARISON: 10/12/2024 at 8:22 AM FINDINGS/IMPRESSION: groundwater monitoring technician leads overlie the field of view. Nominal decrease in right pulmonary apical pneumothorax. Remainder of the study is unchanged. DICTATED BY: JORGE BILLS MD DATE: 10/12/24 1307 REASON: pleural effusion ORDERING PHYSICIAN: SANTANA CASTRO PROCEDURE: CXR1VW - CHEST 1VW PORTABLE CHEST RADIOGRAPH INDICATION: pleural effusion COMPARISON: 10/09/2024 FINDINGS: groundwater monitoring technician leads overlie the field of view. Heart size is normal. The pulmonary vascularity and lobo appear normal. No abnormal pulmonary parenchymal opacity or consolidation identified. Small 5% right pulmonary apical pneumothorax. Removal of right thoracostomy tube. No significant pleural effusion noted. IMPRESSION: Small 5% right pulmonary apical pneumothorax after removal of right thoracostomy tube. This examination was provided for interpretation at 7:18 AM. Above findings discussed with nurse Ryan at 7:18 AM on 10/12/2024 via telephone prior to finalization of this report. DICTATED BY: JORGE BILLS MD DATE: 10/12/24 0908 REASON: s/p pericardial window ORDERING PHYSICIAN: MICHAEL DEL ROSARIO MD PROCEDURE: CXR1VW - CHEST 1VW FRONTAL CHEST RADIOGRAPH INDICATION: s/p pericardial window COMPARISON: 10/08/2024 FINDINGS/IMPRESSION: groundwater monitoring technician leads overlie the field of view. Heart is slightly enlarged, without pulmonary vascular congestion. Stable right chest tube, without pneumothorax. Small layering bilateral pleural effusions with subjacent passive atelectasis. DICTATED BY: JORGE BILLS MD DATE: 10/09/24 1126 REASON: s/p pericardial window ORDERING PHYSICIAN: MICHAEL DEL ROSARIO MD PROCEDURE: CXR1VW - CHEST 1VW CHEST 1VW HISTORY: Pericardial window COMPARISON: 10/06/2024 FINDINGS: A frontal projection of the chest was obtained. There are bilateral pulmonary infiltrates suggestive of pulmonary vascular congestion with possible superimposed pneumonitis. The heart is borderline enlarged. Poor inspiratory effort is seen. No evidence of aortic calcification is seen. IMPRESSION: 1. Bilateral pulmonary infiltrates are seen suggestive of pulmonary vascular congestion with possible superimposed pneumonitis. DICTATED BY: KARL DRISCOLL MD DATE: 10/08/24 1437 ASSESSMENT: Acute on chronic renal failure Fluid overload Anemia Hyperkalemia Acute hypoxic respiratory failure Hypertension Pericardial effusion, circumferential Cardiac tamponade Pleural effusion, left-sided PLAN: Labs, diagnostic, radiologic exams reviewed and interpreted by myself and supervising physician. We have reviewed external records in detail There is no need for emergent renal replacement therapy. Start Lasix 80 mg IV BD. Continue with Venofer 300 mg IV daily x 3 doses. Social service consult for outpatient dialysis qualification. Pending medical records from slitter cut off operator and renal biopsy results Require close monitoring of renal function and electrolytes Order CBC, CMP,and electrolytes in am Continue with renal diet BiPAP as necessary, for respiratory distress Monitor blood pressure adjust medication doses as needed Avoid hypotensive episodes May use Dilaudid 0.5 mg IV every 6 hours as needed for severe pain Monitor blood sugars Strict intake, output, and daily weight should be monitored Please renally adjust medications Avoid nephrotoxic and nonsteroidal drugs Avoid contrast if possible Will continue to monitor renal function, anemia, electrolytes Treatment plan discussed with patient Questions were answered We have discussed with the other team physicians in detail about the care plan We will continue to monitor the patient closely ATTESTATION BY PHYSICIAN I have seen and examined the patient. I reviewed the documentation, medical decision making, and treatment plan as noted by the mid-level provider above. I agree with the findings and plan of care. LEE RODRIGUEZ MD, [facility] Oct 12, 2024 09:45
--- NOTE | 2024-10-12 10:08 | PN ---
[facility] PROGRESS NOTE Date Patient Seen: Oct 12, 2024 Time of Visit: 10:08 Supervising Physician: Dr. Loi Motne Primary Care Physician: No PCP Outpatient Specialists: Inpatient Consults: Dr. Damon (CTS), Dr. Valdez (Nephrology) PROBLEM LIST: Acute hypoxemic respiratory failure, POA improved Pericardial effusion with cardiac tamponade, circumferential, POA s/p pericardial window on 10/08/24 Small apical pneumothorax post pericardial drain removal on 10/12/2024 Pneumonia, (+) HAEMOPHILUS INFLUENZAE III Acute kidney injury on CKD 5, POA Pleural effusion, left-sided, POA Hypertension, uncontrolled, POA History of gestational hypertension INTERVAL HISTORY: Patient assessed at bedside. Awake, alert, oriented x3. Currently on non- rebreather 15 L/100 % oxygen due to x-ray done this morning showing 5% apical pneumothorax, likely from pericardial drain that was removed yesterday. Patient denies any shortness of breath, and chest pain, abdominal pain, nausea or vomiting. Repeat chest x-ray ordered for 12:30 shows improvement in pneumothorax, we will continue with non-rebreather for a repeat x-ray in the morning. Blood pressure has improved with adjustment of medications. Plan of care discussed with patient, verbalized understanding Nephrology added 80 mg of IV Lasix yesterday and scheduled doses for today. Creatinine remains elevated at 6.5. Autoimmune workup will be ordered due to kidney failure and pericarditis Family member at bedside. Disposition is home. No overnight issues per nursing. REVIEW OF SYSTEMS: 12 point ROS reviewed with patient. Pertinent positives mentioned above. Otherwise negative. PHYSICAL EXAM: GENERAL: alert, weak, awake oriented x 3 HEENT: EOMI, Sclera non icteric, moist mucosa NECK: Supple, no JVD, trachea midline LUNGS: Diminished right lung bruno HEART: Regular rate and rhythm. Normal S1 and S2, without murmurs ABD: Abdomen soft, nontender. Bowel sounds present EXT: No clubbing cyanosis or edema NEURO: AAOx3, follows commands Vital Signs (last 8hr) Date Time Temp Pulse Resp B/P (MAP) Pulse Ox O2 Delivery O2 Flow Rate FiO2 10/12/24 07:00 98.2 74 16 179/81 96 Room Air 10/12/24 03:42 98.6 73 20 155/74 96 Room Air LABS: Hematology Labs: Test 10/12/24 04:21 10/11/24 05:08 Range/Units White Blood Count 6.8 4.8-10.8 K/uL Red Blood Count 3.56 L 4.00-5.50 MIL/uL Hemoglobin 10.2 L 12.0-16.0 g/dL Hematocrit 31.7 L 36-48 % Mean Corpuscular Volume 89.0 79-99 fL Mean Corpuscular Hemoglobin 28.7 27.0-33.0 pg Mean Corpuscular Hemoglobin Concent 32.2 32.0-36.0 g/dL Red Cell Distribution Width 14.9 11.0-15.5 % Platelet Count 194 130-400 K/uL Mean Platelet Volume 11.7 H 7.5-10.5 fL Nucleated Red Blood Cells 0.0 0.0-0.19 % Immature Granulocyte % (Auto) 0.3 0-1 % Neutrophils (%) (Auto) 65.5 40.0-77.0 % Lymphocytes (%) (Auto) 17.7 L 21.0-51.0 % Monocytes (%) (Auto) 8.7 3.0-13.0 % Eosinophils (%) (Auto) 7.2 0.0-8.0 % Basophils (%) (Auto) 0.6 0.0-5.0 % Neutrophils # (Auto) 4.4 1.8-7.7 K/uL Lymphocytes # (Auto) 1.2 1.0-4.8 K/uL Monocytes # (Auto) 0.6 0.1-1.0 K/uL Eosinophils # (Auto) 0.49 0.00-0.70 K/uL Basophils # (Auto) 0.04 0.00-0.20 K/uL Absolute Immature Granulocyte (auto 0.02 0-1 K/uL Chemistry Labs: Test 10/12/24 04:21 10/11/24 11:44 10/11/24 05:08 Range/Units Sodium Level 133 L 136-145 mmol/L Potassium Level 4.5 3.5-5.1 mmol/L Chloride Level 99 L 101-111 mmol/L Carbon Dioxide Level 24 21-32 mmol/L Blood Urea Nitrogen 80 *H 7-18 mg/dL Creatinine 6.5 H 0.5-1.0 mg/dL Glomerular Filtration Rate Calc 8 >90 mL/min Random Glucose 95 70-105 mg/dL Total Calcium 7.4 L 8.5-10.1 mg/dL Magnesium Level 2.30 1.80-2.40 mg/dL Total Bilirubin 0.2 0.2-1.0 mg/dL Aspartate Amino Transf (AST/SGOT) 11 10-37 U/L Alanine Aminotransferase (ALT/SGPT) 3 L 12-78 U/L Alkaline Phosphatase 61 50-136 U/L Total Protein 5.4 L 6.0-8.3 g/dL Albumin 1.8 L 3.5-5.0 g/dL Whole Blood Glucose 103 70-110 MG/DL Phosphorus Level 6.8 H 2.5-4.9 mg/dL DIAGNOSTICS / RADIOLOGY RESULTS: PROCEDURE: CXR1VW - CHEST 1VW FRONTAL CHEST RADIOGRAPH INDICATION: pneumothorax COMPARISON: 10/12/2024 at 8:22 AM FINDINGS/IMPRESSION: engine monitor leads overlie the field of view. Nominal decrease in right pulmonary apical pneumothorax. Remainder of the study is unchanged. PLAN Continue non-rebreather for today repeat x-ray in the morning for right apical pneumothorax Autoimmune workup ordered due to kidney failure and pericarditis Continue on Hydralazine 25mg PO TID Increase amlodipine 10mg PO daily Continue on metoprolol We will continue to monitor the vital signs. We will continue to provide general supportive care, GI and DVT prophylaxis. Further orders per attending MD and hospital course. NEURO: Minimize central acting medications as possible. Maintain fall precautions, adequate lighting during the day PULMONARY: Supplemental 02 as needed. Maintain aspiration precautions at all times CARDIOVASCULAR: Follow hemodynamics. Vital signs per facility protocol GI & NUTRITION: Continue with nutritional support. Continue stool softeners and laxatives as needed. KIDNEYS & ELECTROLYTES: Strict monitoring of intake, output and overall fluid balance. Avoid nephrotoxic medications to the extent possible. Medications to be dosed according to renal function. Monitor electrolytes and replace as needed ENDOCRINE: Maintain blood glucose between 100-180 at all times. Hypoglycemia protocol in place INFECTIOUS DISEASE: Trend temperature, WBC and procalcitonin level Follow cultures, deescalate antibiotics as soon as possible. Panculture if new onset fever ONCOLOGY/HEMATOLOGY/COAGULATION: Monitor for s/s of bleeding Monitor hemoglobin, coagulation studies as needed SKIN: Pressure ulcer prevention per facility protocol Specialty mattress ORTHO/REHAB: Continue PT/OT Prophylaxis: Continue GI and DVT prophylaxis Code Status: Full Resuscitation Disposition: TBD Other: Total patient care time exceeds 35 minutes excluding all procedures. SANTANA MONTE Oct 12, 2024 10:08
--- NOTE | 2024-10-12 13:10 | HMCIMG ---
FRONTAL CHEST RADIOGRAPH INDICATION: pneumothorax COMPARISON: 10/12/2024 at 8:22 AM FINDINGS/IMPRESSION: pool manager leads overlie the field of view. Nominal decrease in right pulmonary apical pneumothorax. Remainder of the study is unchanged.
[2024-10-12] MEDS: furoSEMIDE 40MG VIAL IV SCH (15:14)
[2024-10-13] VITALS (12 sets, daily range): BP systolic 131–189; BP diastolic 71–96; PULSE 67–78; RESP 18–20; TEMP 97.8–98.7; O2SAT 99–100
[2024-10-13 04:10] LABS: HEMATOCRIT 28.3 % (36-48); MEAN CORPUSCULAR HEMOGLOBIN 28.9 pg (27.0-33.0); MEAN CORPUSCULAR HGB CONC 32.9 g/dL (32.0-36.0); MEAN CORPUSCULAR VOLUME 87.9 fL (79-99); RED BLOOD CELL COUNT(AUTO) 3.22 MIL/uL (4.00-5.50); RED CELL DISTRIBUTION WIDTH 14.5 % (11.0-15.5); WHITE BLOOD COUNT (AUTO) 5.5 K/uL (4.8-10.8)
[2024-10-13 04:26] LABS: ALBUMIN 1.7 g/dL (3.5-5.0); ASPARTATE AMINOTRANSFERASE 12 U/L (10-37); BILIRUBIN,TOTAL 0.2 mg/dL (0.2-1.0); CARBON DIOXIDE 23 mmol/L (21-32); CHLORIDE 100 mmol/L (101-111); CREATININE 6.8 mg/dL (0.5-1.0); GLOMERULAR FILTR. RATE CALC 7 mL/min (>90); GLUCOSE,RANDOM 87 mg/dL (70-105); POTASSIUM 4.2 mmol/L (3.5-5.1); SODIUM SERUM 135 mmol/L (136-145); TOTAL PROTEIN, SERUM 5.2 g/dL (6.0-8.3)
[2024-10-13 04:28] LABS: ALANINE AMINOTRANSFERASE < 6 U/L (12-78)
[2024-10-13 04:30] LABS: UREA NITROGEN, BLOOD 86 mg/dL (7-18)
[2024-10-13] MEDS: hydrALAZine 25MG TABLET PO SCH (09:27)
[2024-10-13] MEDS: metOPROLol sucCINATE 50 MG TAB.SR.24H PO SCH (09:27)
--- NOTE | 2024-10-13 09:43 | HMCIMG ---
FRONTAL CHEST RADIOGRAPH INDICATION: pneumothorax COMPARISON: None FINDINGS/IMPRESSION: process environmental technician leads overlie the field of view. Unchanged less than 5% right pulmonary apical pneumothorax. Remainder of the study is unchanged.
--- NOTE | 2024-10-13 10:51 | PN ---
NEPHROLOGY PROGRESS NOTE Date/Time Patient Seen: Oct 13, 2024 Reason for Consultation: 10:50 SUBJECTIVE: This is a 39-year-old female with a past medical history of gestational hypertension Patient was transferred from [facility] for CT evaluation for pericardial effusion and possible pericardial window. She presented to [facility] Emergency room with complaints of sudden shortness of breath. She was found to be hypertensive according Cardene drlesley. 2D echo revealed found to have moderate to large circumferential pericardial effusion with right ventricular early diastolic collapse suggestive of cardiac tamponade. There is also large left-sided pleural effusion. S/p pericardial window with 400 mL removed, 100 mL were sent for cytology. Chest tube has been removed. Chest x-ray showed Unchanged less than 5% right pulmonary apical pneumothorax. She was noted to have elevated BUN/creatinine. Patient is aware of kidney problems states she had a biopsy done by dental detail representative Patient not does not remember biopsy results or dental detail representative name. Pending medical records requested from dental detail representative. We have been consulted for renal failure. Renal function remains elevated Electrolytes and hemoglobin are stable. Significant proteinuria noted. 4.7 g/day Continues on IV diuretics. Serologies are pending. She was seen in the medical floor No Family at the bedside Prognosis remains guarded REVIEW OF SYSTEMS: GENERAL: Negative for any nausea, vomiting, fevers, chills, or weight loss. NEUROLOGIC: Negative for any blurry vision, blind spots, double vision, facial asymmetry, dysphagia, dysarthria, hemiparesis, hemisensory deficits, vertigo, ataxia. HEENT: Negative for any head trauma, neck trauma, neck stiffness, photophobia, phonophobia, sinusitis, rhinitis. CARDIAC: Negative for any chest pain, dyspnea on exertion, paroxysmal nocturnal dyspnea, peripheral edema. PULMONARY: Negative for any shortness of breath, wheezing, COPD, or TB exposure. GASTROINTESTINAL: Negative for any abdominal pain, nausea, vomiting, bright red blood per rectum, melena. GENITOURINARY: Negative for any dysuria, hematuria, incontinence. INTEGUMENTARY: Negative for any rashes, cuts, insect bites. RHEUMATOLOGIC: Negative for any joint pains, photosensitive rashes, history of vasculitis or kidney problems. HEMATOLOGIC: Negative for any abnormal bruising, frequent infections or bleeding. PHYSICAL EXAM: GENERAL: Alert and oriented x 3. No acute distress. Well-nourished. EYES: EOMI. Anicteric. HENT: Moist mucous membranes. No scleral icterus. No cervical lymphadenopathy. LUNGS: Clear to auscultation bilaterally. No accessory muscle use. CARDIOVASCULAR: Regular rate and rhythm. No murmur. No JVD. ABDOMEN: Soft, non-tender and non-distended. No palpable masses. EXTREMITIES: No edema. Non-tender. SKIN: No rashes or lesions. Warm. NEUROLOGIC: No focal neurological deficits. CN II-XII grossly intact, but not in dividually tested. PSYCHIATRIC: Cooperative. Appropriate mood and affect. LABORATORY: [ ] Hematology Labs: Test 10/13/24 03:53 Range/Units White Blood Count 5.5 4.8-10.8 K/uL Red Blood Count 3.22 L 4.00-5.50 MIL/uL Hemoglobin 9.3 L 12.0-16.0 g/dL Hematocrit 28.3 L 36-48 % Mean Corpuscular Volume 87.9 79-99 fL Mean Corpuscular Hemoglobin 28.9 27.0-33.0 pg Mean Corpuscular Hemoglobin Concent 32.9 32.0-36.0 g/dL Red Cell Distribution Width 14.5 11.0-15.5 % Platelet Count 195 130-400 K/uL Mean Platelet Volume 11.8 H 7.5-10.5 fL Nucleated Red Blood Cells 0.0 0.0-0.19 % Chemistry Labs: Test 10/13/24 03:53 10/12/24 04:21 10/11/24 11:44 Range/Units Sodium Level 135 L 136-145 mmol/L Potassium Level 4.2 3.5-5.1 mmol/L Chloride Level 100 L 101-111 mmol/L Carbon Dioxide Level 23 21-32 mmol/L Blood Urea Nitrogen 86 *H 7-18 mg/dL Creatinine 6.8 H 0.5-1.0 mg/dL Glomerular Filtration Rate Calc 7 >90 mL/min Random Glucose 87 70-105 mg/dL Total Calcium 7.3 L 8.5-10.1 mg/dL Total Bilirubin 0.2 0.2-1.0 mg/dL Aspartate Amino Transf (AST/SGOT) 12 10-37 U/L Alanine Aminotransferase (ALT/SGPT) < 6 L 12-78 U/L Alkaline Phosphatase 63 50-136 U/L Total Protein 5.2 L 6.0-8.3 g/dL Albumin 1.7 L 3.5-5.0 g/dL Magnesium Level 2.30 1.80-2.40 mg/dL Whole Blood Glucose 103 70-110 MG/DL DIAGNOSTICS / RADIOLOGY: REASON: pneumothorax ORDERING PHYSICIAN: SANTANA CASTRO PROCEDURE: CXR1VW - CHEST 1VW FRONTAL CHEST RADIOGRAPH INDICATION: pneumothorax COMPARISON: None FINDINGS/IMPRESSION: monitor worker leads overlie the field of view. Unchanged less than 5% right pulmonary apical pneumothorax. Remainder of the study is unchanged. DICTATED BY: JORGE BILLS MD DATE: 10/13/24 0940 REASON: pneumothorax ORDERING PHYSICIAN: SANTANA CASTRO PROCEDURE: CXR1VW - CHEST 1VW FRONTAL CHEST RADIOGRAPH INDICATION: pneumothorax COMPARISON: 10/12/2024 at 8:22 AM FINDINGS/IMPRESSION: monitor worker leads overlie the field of view. Nominal decrease in right pulmonary apical pneumothorax. Remainder of the study is unchanged. DICTATED BY: JORGE BILLS MD DATE: 10/12/24 1307 REASON: pleural effusion ORDERING PHYSICIAN: SANTANA CASTRO PROCEDURE: CXR1VW - CHEST 1VW PORTABLE CHEST RADIOGRAPH INDICATION: pleural effusion COMPARISON: 10/09/2024 FINDINGS: monitor worker leads overlie the field of view. Heart size is normal. The pulmonary vascularity and lobo appear normal. No abnormal pulmonary parenchymal opacity or consolidation identified. Small 5% right pulmonary apical pneumothorax. Removal of right thoracostomy tube. No significant pleural effusion noted. IMPRESSION: Small 5% right pulmonary apical pneumothorax after removal of right thoracostomy tube. This examination was provided for interpretation at 7:18 AM. Above findings discussed with nurse Davis at 7:18 AM on 10/12/2024 via telephone prior to finalization of this report. DICTATED BY: JORGE BILLS MD DATE: 10/12/24 0908 REASON: s/p pericardial window ORDERING PHYSICIAN: MICHAEL DEL ROSARIO MD PROCEDURE: CXR1VW - CHEST 1VW FRONTAL CHEST RADIOGRAPH INDICATION: s/p pericardial window COMPARISON: 10/08/2024 FINDINGS/IMPRESSION: monitor worker leads overlie the field of view. Heart is slightly enlarged, without pulmonary vascular congestion. Stable right chest tube, without pneumothorax. Small layering bilateral pleural effusions with subjacent passive atelectasis. DICTATED BY: JORGE BILLS MD DATE: 10/09/24 1126 REASON: s/p pericardial window ORDERING PHYSICIAN: MICHAEL DEL ROSARIO MD PROCEDURE: CXR1VW - CHEST 1VW CHEST 1VW HISTORY: Pericardial window COMPARISON: 10/06/2024 FINDINGS: A frontal projection of the chest was obtained. There are bilateral pulmonary infiltrates suggestive of pulmonary vascular congestion with possible superimposed pneumonitis. The heart is borderline enlarged. Poor inspiratory effort is seen. No evidence of aortic calcification is seen. IMPRESSION: 1. Bilateral pulmonary infiltrates are seen suggestive of pulmonary vascular congestion with possible superimposed pneumonitis. DICTATED BY: KARL DRISCOLL MD DATE: 10/08/24 1437 ASSESSMENT: Acute on chronic renal failure Fluid overload Anemia Hyperkalemia Acute hypoxic respiratory failure Hypertension Pericardial effusion, circumferential Cardiac tamponade Pleural effusion, left-sided PLAN: Labs, diagnostic, radiologic exams reviewed and interpreted by myself and supervising physician. We have reviewed external records in detail There is no need for emergent renal replacement therapy. Continue with Lasix 80 mg IV BD. Social service consult for outpatient dialysis qualification. Pending medical records from dental detail representative and renal biopsy results Require close monitoring of renal function and electrolytes Order CBC, CMP,and electrolytes in am Continue with renal diet BiPAP as necessary, for respiratory distress Monitor blood pressure adjust medication doses as needed Avoid hypotensive episodes May use Dilaudid 0.5 mg IV every 6 hours as needed for severe pain Monitor blood sugars Strict intake, output, and daily weight should be monitored Please renally adjust medications Avoid nephrotoxic and nonsteroidal drugs Avoid contrast if possible Will continue to monitor renal function, anemia, electrolytes Treatment plan discussed with patient Questions were answered We have discussed with the other team physicians in detail about the care plan We will continue to monitor the patient closely ATTESTATION BY PHYSICIAN I have seen and examined the patient. I reviewed the documentation, medical decision making, and treatment plan as noted by the mid-level provider above. I agree with the findings and plan of care. LEE RODRIGUEZ MD, [facility] Oct 13, 2024 10:51
--- NOTE | 2024-10-13 12:18 | PN ---
[facility] PROGRESS NOTE Date Patient Seen: Oct 13, 2024 Time of Visit: 12:18 Supervising Physician: Dr. Loi Monte Primary Care Physician: No PCP Outpatient Specialists: Inpatient Consults: Dr. Damon (CTS), Dr. Valdez (Nephrology) PROBLEM LIST: Acute hypoxemic respiratory failure, POA improved Pericardial effusion with cardiac tamponade, circumferential, POA s/p pericardial window on 10/08/24 Small apical 5% pneumothorax post pericardial drain removal on 10/12/2024 Pneumonia, (+) HAEMOPHILUS INFLUENZAE III Acute kidney injury on CKD 5, POA, pending renal biopsy results from attache and renal biopsy results Pleural effusion, left-sided, POA Hypertension, uncontrolled History of gestational hypertension INTERVAL HISTORY: Patient assessed at bedside. Currently on NRM 15L/100%. CXR today continues to show small apical pneumothorax. Okay to remove from NRM per Dr. Loi Monte and place on NC as tolerated to keep SPO2>90%. Creatinine increased to 6.8 and GFR decreased to 7. Continues on IV Lasix per nephrology. I&O shows -955 yesterday of urine output. Denies any chest pain, abdominal pain, nausea or vomiting. Blood pressure has improved with medical adjustment. 1:1 done with nephrology. Pending autoimmune workup Social service consult for outpatient dialysis qualification. Pending medical records from attache and renal biopsy results from [facility]. Unfortunately patient doesn't have insurance. REVIEW OF SYSTEMS: 12 point ROS reviewed with patient. Pertinent positives mentioned above. Otherwise negative. PHYSICAL EXAM: GENERAL: alert, weak, awake oriented x 3 HEENT: EOMI, Sclera non icteric, moist mucosa NECK: Supple, no JVD, trachea midline LUNGS: Diminished right lung bruno HEART: Regular rate and rhythm. Normal S1 and S2, without murmurs ABD: Abdomen soft, nontender. Bowel sounds present EXT: No clubbing cyanosis or edema NEURO: AAOx3, follows commands Vital Signs (last 8hr) Date Time Temp Pulse Resp B/P (MAP) Pulse Ox O2 Delivery O2 Flow Rate FiO2 10/13/24 08:08 97.9 75 18 189/96 98 Room Air 10/13/24 08:00 100 Room Air* 0 21 10/13/24 04:50 172/77 10/13/24 04:49 97.9 78 18 185/85 99 Nasal Cannula LABS: Hematology Labs: Test 10/13/24 03:53 Range/Units White Blood Count 5.5 4.8-10.8 K/uL Red Blood Count 3.22 L 4.00-5.50 MIL/uL Hemoglobin 9.3 L 12.0-16.0 g/dL Hematocrit 28.3 L 36-48 % Mean Corpuscular Volume 87.9 79-99 fL Mean Corpuscular Hemoglobin 28.9 27.0-33.0 pg Mean Corpuscular Hemoglobin Concent 32.9 32.0-36.0 g/dL Red Cell Distribution Width 14.5 11.0-15.5 % Platelet Count 195 130-400 K/uL Mean Platelet Volume 11.8 H 7.5-10.5 fL Nucleated Red Blood Cells 0.0 0.0-0.19 % Chemistry Labs: Test 10/13/24 03:53 10/12/24 04:21 Range/Units Sodium Level 135 L 136-145 mmol/L Potassium Level 4.2 3.5-5.1 mmol/L Chloride Level 100 L 101-111 mmol/L Carbon Dioxide Level 23 21-32 mmol/L Blood Urea Nitrogen 86 *H 7-18 mg/dL Creatinine 6.8 H 0.5-1.0 mg/dL Glomerular Filtration Rate Calc 7 >90 mL/min Random Glucose 87 70-105 mg/dL Total Calcium 7.3 L 8.5-10.1 mg/dL Total Bilirubin 0.2 0.2-1.0 mg/dL Aspartate Amino Transf (AST/SGOT) 12 10-37 U/L Alanine Aminotransferase (ALT/SGPT) < 6 L 12-78 U/L Alkaline Phosphatase 63 50-136 U/L Total Protein 5.2 L 6.0-8.3 g/dL Albumin 1.7 L 3.5-5.0 g/dL Magnesium Level 2.30 1.80-2.40 mg/dL DIAGNOSTICS / RADIOLOGY RESULTS: PROCEDURE: CXR1VW - CHEST 1VW FRONTAL CHEST RADIOGRAPH INDICATION: pneumothorax COMPARISON: None FINDINGS/IMPRESSION: alarm security or surveillance monitor leads overlie the field of view. Unchanged less than 5% right pulmonary apical pneumothorax. Remainder of the study is unchanged. PLAN Okay for NC, remove NRM 1:1 done with nephrology. Pending autoimmune workup due to kidney failure and pericarditis Social service consult for outpatient dialysis qualification. Pending medical records from attache and renal biopsy results from [facility]. Unfortunately patient doesn't have insurance. Increased metoprolol and hydralazine We will continue to monitor the vital signs. We will continue to provide general supportive care, GI and DVT prophylaxis. PT to evaluate NEURO: Minimize central acting medications as possible. Maintain fall precautions, adequate lighting during the day PULMONARY: Supplemental 02 as needed. Maintain aspiration precautions at all times CARDIOVASCULAR: Follow hemodynamics. Vital signs per facility protocol GI & NUTRITION: Continue with nutritional support. Continue stool softeners and laxatives as needed. KIDNEYS & ELECTROLYTES: Strict monitoring of intake, output and overall fluid balance. Avoid nephrotoxic medications to the extent possible. Medications to be dosed according to renal function. Monitor electrolytes and replace as needed ENDOCRINE: Maintain blood glucose between 100-180 at all times. Hypoglycemia protocol in place INFECTIOUS DISEASE: Trend temperature, WBC and procalcitonin level Follow cultures, deescalate antibiotics as soon as possible. Panculture if new onset fever ONCOLOGY/HEMATOLOGY/COAGULATION: Monitor for s/s of bleeding Monitor hemoglobin, coagulation studies as needed SKIN: Pressure ulcer prevention per facility protocol Specialty mattress ORTHO/REHAB: Continue PT/OT Prophylaxis: Continue GI and DVT prophylaxis Code Status: Full Resuscitation Disposition: SANTANA ESCOBAR Oct 13, 2024 12:18
[2024-10-14] VITALS (8 sets, daily range): BP systolic 143–182; BP diastolic 69–89; PULSE 74–87; RESP 16–20; TEMP 97.9–98.6; O2SAT 97–99
[2024-10-14 03:55] LABS: HEMATOCRIT 27.5 % (36-48); MEAN CORPUSCULAR HEMOGLOBIN 28.5 pg (27.0-33.0); MEAN CORPUSCULAR HGB CONC 33.1 g/dL (32.0-36.0); MEAN CORPUSCULAR VOLUME 86.2 fL (79-99); RED BLOOD CELL COUNT(AUTO) 3.19 MIL/uL (4.00-5.50); RED CELL DISTRIBUTION WIDTH 14.3 % (11.0-15.5); WHITE BLOOD COUNT (AUTO) 4.8 K/uL (4.8-10.8)
[2024-10-14 04:13] LABS: INR <= 0.93 (0.85-1.15); PROTHROMBIN TIME 10.4 SEC (9.6-11.6)
[2024-10-14 04:14] LABS: PARTIAL THROMBOPLASTIN TIME 35.2 SEC (26.3-35.5)
[2024-10-14 04:24] LABS: CREATININE 7.3 mg/dL (0.5-1.0); MAGNESIUM 2.1 mg/dL (1.80-2.40); PHOSPHORUS 6.8 mg/dL (2.5-4.9); POTASSIUM 4.7 mmol/L (3.5-5.1)
--- NOTE | 2024-10-14 11:33 | HMCIMG ---
CHEST 1VW REASON: pneumothorax COMPARISON: 10/13/2024 FINDINGS: There is mild cardiomegaly which appears new since prior exam. There is mild pulmonary vascular congestion and a small right pleural effusion. Mediastinum and bony thorax appear unremarkable. IMPRESSION: 1. Enlarging cardiac silhouette, there is no mild vascular congestion and a right pleural effusion.
--- NOTE | 2024-10-14 13:01 | PN ---
NEPHROLOGY PROGRESS NOTE Date/Time Patient Seen: Oct 14, 2024 Reason for Consultation: 13:00 SUBJECTIVE: This is a 39-year-old female with a past medical history of gestational hypertension Patient was transferred from [facility] for CT evaluation for pericardial effusion and possible pericardial window. She presented to [facility] Emergency room with complaints of sudden shortness of breath. She was found to be hypertensive according Cardene drip. 2D echo revealed found to have moderate to large circumferential pericardial effusion with right ventricular early diastolic collapse suggestive of cardiac tamponade. There is also large left-sided pleural effusion. S/p pericardial window with 400 mL removed, 100 mL were sent for cytology. Chest tube has been removed. She was noted to have elevated BUN/creatinine. Patient is aware of kidney problems states she had a biopsy done by marble cleaner Patient not does not remember biopsy results or marble cleaner name. Pending medical records requested from marble cleaner. We have been consulted for renal failure. Renal function remains elevated Electrolytes and hemoglobin are stable. Significant proteinuria noted. 4.7 g/day Continues on IV diuretics. Serologies are pending. She was seen in the medical floor No Family at the bedside Prognosis remains guarded REVIEW OF SYSTEMS: GENERAL: Negative for any nausea, vomiting, fevers, chills, or weight loss. NEUROLOGIC: Negative for any blurry vision, blind spots, double vision, facial asymmetry, dysphagia, dysarthria, hemiparesis, hemisensory deficits, vertigo, ataxia. HEENT: Negative for any head trauma, neck trauma, neck stiffness, photophobia, phonophobia, sinusitis, rhinitis. CARDIAC: Negative for any chest pain, dyspnea on exertion, paroxysmal nocturnal dyspnea, peripheral edema. PULMONARY: Negative for any shortness of breath, wheezing, COPD, or TB exposure. GASTROINTESTINAL: Negative for any abdominal pain, nausea, vomiting, bright red blood per rectum, melena. GENITOURINARY: Negative for any dysuria, hematuria, incontinence. INTEGUMENTARY: Negative for any rashes, cuts, insect bites. RHEUMATOLOGIC: Negative for any joint pains, photosensitive rashes, history of vasculitis or kidney problems. HEMATOLOGIC: Negative for any abnormal bruising, frequent infections or bleeding. PHYSICAL EXAM: GENERAL: Alert and oriented x 3. No acute distress. Well-nourished. EYES: EOMI. Anicteric. HENT: Moist mucous membranes. No scleral icterus. No cervical lymphadenopathy. LUNGS: Clear to auscultation bilaterally. No accessory muscle use. CARDIOVASCULAR: Regular rate and rhythm. No murmur. No JVD. ABDOMEN: Soft, non-tender and non-distended. No palpable masses. EXTREMITIES: No edema. Non-tender. SKIN: No rashes or lesions. Warm. NEUROLOGIC: No focal neurological deficits. CN II-XII grossly intact, but not individually tested. PSYCHIATRIC: Cooperative. Appropriate mood and affect. LABORATORY: [ ] Hematology Labs: Test 10/14/24 03:45 Range/Units White Blood Count 4.8 4.8-10.8 K/uL Red Blood Count 3.19 L 4.00-5.50 MIL/uL Hemoglobin 9.1 L 12.0-16.0 g/dL Hematocrit 27.5 L 36-48 % Mean Corpuscular Volume 86.2 79-99 fL Mean Corpuscular Hemoglobin 28.5 27.0-33.0 pg Mean Corpuscular Hemoglobin Concent 33.1 32.0-36.0 g/dL Red Cell Distribution Width 14.3 11.0-15.5 % Platelet Count 212 130-400 K/uL Mean Platelet Volume 11.5 H 7.5-10.5 fL Nucleated Red Blood Cells 0.0 0.0-0.19 % Chemistry Labs: Test 10/14/24 03:45 10/13/24 03:53 Range/Units Sodium Level 136 136-145 mmol/L Potassium Level 4.7 3.5-5.1 mmol/L Chloride Level 102 101-111 mmol/L Carbon Dioxide Level 22 21-32 mmol/L Blood Urea Nitrogen 95 *H 7-18 mg/dL Creatinine 7.3 H 0.5-1.0 mg/dL Glomerular Filtration Rate Calc 7 >90 mL/min Random Glucose 86 70-105 mg/dL Total Calcium 7.8 L 8.5-10.1 mg/dL Phosphorus Level 6.8 H 2.5-4.9 mg/dL Magnesium Level 2.10 1.80-2.40 mg/dL Total Bilirubin 0.2 0.2-1.0 mg/dL Aspartate Amino Transf (AST/SGOT) 12 10-37 U/L Alanine Aminotransferase (ALT/SGPT) < 6 L 12-78 U/L Alkaline Phosphatase 63 50-136 U/L Total Protein 5.2 L 6.0-8.3 g/dL Albumin 1.7 L 3.5-5.0 g/dL Coagulation Labs: Test 10/14/24 03:45 Range/Units Prothrombin Time 10.4 9.6-11.6 SEC Prothromb Time International Ratio <= 0.93 0.85-1.15 Activated Partial Thromboplast Time 35.2 26.3-35.5 SEC DIAGNOSTICS / RADIOLOGY: REASON: pneumothorax ORDERING PHYSICIAN: SANTANA CASTRO PROCEDURE: CXR1VW - CHEST 1VW CHEST 1VW REASON: pneumothorax COMPARISON: 10/13/2024 FINDINGS: There is mild cardiomegaly which appears new since prior exam. There is mild pulmonary vascular congestion and a small right pleural effusion. Mediastinum and bony thorax appear unremarkable. IMPRESSION: 1. Enlarging cardiac silhouette, there is no mild vascular congestion and a right pleural effusion. DICTATED BY: LISA KEYS MD DATE: 10/14/24 1130 REASON: pneumothorax ORDERING PHYSICIAN: SANTANA CASTRO PROCEDURE: CXR1VW - CHEST 1VW FRONTAL CHEST RADIOGRAPH INDICATION: pneumothorax COMPARISON: None FINDINGS/IMPRESSION: laboratory monitor leads overlie the field of view. Unchanged less than 5% right pulmonary apical pneumothorax. Remainder of the study is unchanged. DICTATED BY: JORGE BILLS MD DATE: 10/13/24 0940 REASON: pneumothorax ORDERING PHYSICIAN: SANTANA CASTRO PROCEDURE: CXR1VW - CHEST 1VW FRONTAL CHEST RADIOGRAPH INDICATION: pneumothorax COMPARISON: 10/12/2024 at 8:22 AM FINDINGS/IMPRESSION: laboratory monitor leads overlie the field of view. Nominal decrease in right pulmonary apical pneumothorax. Remainder of the study is unchanged. DICTATED BY: JORGE BILLS MD DATE: 10/12/24 1307 REASON: pleural effusion ORDERING PHYSICIAN: SANTANA CASTRO PROCEDURE: CXR1VW - CHEST 1VW PORTABLE CHEST RADIOGRAPH INDICATION: pleural effusion COMPARISON: 10/09/2024 FINDINGS: laboratory monitor leads overlie the field of view. Heart size is normal. The pulmonary vascularity and lobo appear normal. No abnormal pulmonary parenchymal opacity or consolidation identified. Small 5% right pulmonary apical pneumothorax. Removal of right thoracostomy tube. No significant pleural effusion noted. IMPRESSION: Small 5% right pulmonary apical pneumothorax after removal of right thoracostomy tube. This examination was provided for interpretation at 7:18 AM. Above findings discussed with nurse Ryan at 7:18 AM on 10/12/2024 via telephone prior to finalization of this report. DICTATED BY: JORGE BILLS MD DATE: 10/12/24 0908 REASON: s/p pericardial window ORDERING PHYSICIAN: MICHAEL DEL ROSARIO MD PROCEDURE: CXR1VW - CHEST 1VW FRONTAL CHEST RADIOGRAPH INDICATION: s/p pericardial window COMPARISON: 10/08/2024 FINDINGS/IMPRESSION: laboratory monitor leads overlie the field of view. Heart is slightly enlarged, without pulmonary vascular congestion. Stable right chest tube, without pneumothorax. Small layering bilateral pleural effusions with subjacent passive atelectasis. DICTATED BY: JORGE BILLS MD DATE: 10/09/24 1126 REASON: s/p pericardial window ORDERING PHYSICIAN: MICHAEL DEL ROSARIO MD PROCEDURE: CXR1VW - CHEST 1VW CHEST 1VW HISTORY: Pericardial window COMPARISON: 10/06/2024 FINDINGS: A frontal projection of the chest was obtained. There are bilateral pulmonary infiltrates suggestive of pulmonary vascular congestion with possible superimposed pneumonitis. The heart is borderline enlarged. Poor inspiratory effort is seen. No evidence of aortic calcification is seen. IMPRESSION: 1. Bilateral pulmonary infiltrates are seen suggestive of pulmonary vascular congestion with possible superimposed pneumonitis. DICTATED BY: KARL DRISCOLL MD DATE: 10/08/24 1437 ASSESSMENT: Acute on chronic renal failure Fluid overload Anemia Hyperkalemia Acute hypoxic respiratory failure Hypertension Pericardial effusion, circumferential Cardiac tamponade Pleural effusion, left-sided PLAN: Labs, diagnostic, radiologic exams reviewed and interpreted by myself and supervising physician. We have reviewed external records in detail There is no need for emergent renal replacement therapy. Change Lasix 80 mg BID to PO Social service consult for outpatient dialysis qualification. Pending medical records from marble cleaner and renal biopsy results Require close monitoring of renal function and electrolytes Order CBC, CMP,and electrolytes in am Continue with renal diet BiPAP as necessary, for respiratory distress Monitor blood pressure adjust medication doses as needed Avoid hypotensive episodes May use Dilaudid 0.5 mg IV every 6 hours as needed for severe pain Monitor blood sugars Strict intake, output, and daily weight should be monitored Please renally adjust medications Avoid nephrotoxic and nonsteroidal drugs Avoid contrast if possible Will continue to monitor renal function, anemia, electrolytes Treatment plan discussed with patient Questions were answered We have discussed with the other team physicians in detail about the care plan We will continue to monitor the patient closely ATTESTATION BY PHYSICIAN I have seen and examined the patient. I reviewed the documentation, medical decision making, and treatment plan as noted by the mid-level provider above. I agree with the findings and plan of care. LEE RODRIGUEZ MD, [facility] Oct 14, 2024 13:01
[2024-10-14] MEDS: furoSEMIDE 80 MG TABLET PO SCH (16:39)
--- NOTE | 2024-10-14 21:02 | PN ---
[facility] PROGRESS NOTE Date Patient Seen: Oct 14, 2024 Time of Visit: 1231 Supervising Physician: Dr. Henderson Primary Care Physician: No PCP Outpatient Specialists: Inpatient Consults: Dr. Damon (CTS), Dr. Valdez (Nephrology) PROBLEM LIST: Acute hypoxemic respiratory failure, POA improved Pericardial effusion with cardiac tamponade, circumferential, POA s/p pericardial window on 10/08/24 Small apical 5% pneumothorax post pericardial drain removal on 10/12/2024 Pneumonia, (+) HAEMOPHILUS INFLUENZAE III Acute kidney injury on CKD 5, POA, pending renal biopsy results from walking dragline operator and renal biopsy results Pleural effusion, left-sided, POA Hypertension, uncontrolled History of gestational hypertension INTERVAL HISTORY: Patient assessed at bedside. Currently on NRM 15L/100%. CXR today continues to show small apical pneumothorax. Okay to remove from NRM per Dr. Loi Monte and place on NC as tolerated to keep SPO2>90%. Creatinine increased to 6.8 and GFR decreased to 7. Continues on IV Lasix per nephrology. I&O shows -955 yesterday of urine output. Denies any chest pain, abdominal pain, nausea or vomiting. Blood pressure has improved with medical adjustment. 1:1 done with nephrology. Pending autoimmune workup Social service consult for outpatient dialysis qualification. Pending medical records from walking dragline operator and renal biopsy results from [facility]. Unfortunately patient doesn't have insurance. 10/14 patient was seen and examined by bedside with family present. Patient currently on2 L nasal cannula we will continue actively titrate FiO2 as tolerated. Patient states does not use home oxygen. Case management to arrange for home oxygen prior to discharge. Patient's CBC unremarkable. As per primary nurse no acute events to be reported. We will continue to follow recommendations from Nephrology. REVIEW OF SYSTEMS: 12 point ROS reviewed with patient. Pertinent positives mentioned above. Otherwise negative. PHYSICAL EXAM: GENERAL: alert, weak, awake oriented x 3 HEENT: EOMI, Sclera non icteric, moist mucosa NECK: Supple, no JVD, trachea midline LUNGS: Diminished right lung bruno HEART: Regular rate and rhythm. Normal S1 and S2, without murmurs ABD: Abdomen soft, nontender. Bowel sounds present EXT: No clubbing cyanosis or edema NEURO: AAOx3, follows commands Vital Signs (last 8hr) Date Time Temp Pulse Resp B/P (MAP) Pulse Ox O2 Delivery O2 Flow Rate FiO2 10/14/24 19:44 98.6 87 18 175/89 97 Room Air 10/14/24 16:00 97.9 82 20 164/83 99 Room Air LABS: Hematology Labs: Test 10/14/24 03:45 Range/Units White Blood Count 4.8 4.8-10.8 K/uL Red Blood Count 3.19 L 4.00-5.50 MIL/uL Hemoglobin 9.1 L 12.0-16.0 g/dL Hematocrit 27.5 L 36-48 % Mean Corpuscular Volume 86.2 79-99 fL Mean Corpuscular Hemoglobin 28.5 27.0-33.0 pg Mean Corpuscular Hemoglobin Concent 33.1 32.0-36.0 g/dL Red Cell Distribution Width 14.3 11.0-15.5 % Platelet Count 212 130-400 K/uL Mean Platelet Volume 11.5 H 7.5-10.5 fL Nucleated Red Blood Cells 0.0 0.0-0.19 % Chemistry Labs: Test 10/14/24 03:45 10/13/24 03:53 Range/Units Sodium Level 136 136-145 mmol/L Potassium Level 4.7 3.5-5.1 mmol/L Chloride Level 102 101-111 mmol/L Carbon Dioxide Level 22 21-32 mmol/L Blood Urea Nitrogen 95 *H 7-18 mg/dL Creatinine 7.3 H 0.5-1.0 mg/dL Glomerular Filtration Rate Calc 7 >90 mL/min Random Glucose 86 70-105 mg/dL Total Calcium 7.8 L 8.5-10.1 mg/dL Phosphorus Level 6.8 H 2.5-4.9 mg/dL Magnesium Level 2.10 1.80-2.40 mg/dL Total Bilirubin 0.2 0.2-1.0 mg/dL Aspartate Amino Transf (AST/SGOT) 12 10-37 U/L Alanine Aminotransferase (ALT/SGPT) < 6 L 12-78 U/L Alkaline Phosphatase 63 50-136 U/L Total Protein 5.2 L 6.0-8.3 g/dL Albumin 1.7 L 3.5-5.0 g/dL Coagulation Labs: Test 10/14/24 03:45 Range/Units Prothrombin Time 10.4 9.6-11.6 SEC Prothromb Time International Ratio <= 0.93 0.85-1.15 Activated Partial Thromboplast Time 35.2 26.3-35.5 SEC DIAGNOSTICS / RADIOLOGY RESULTS: na PLAN Okay for NC, Continue follow recommendations Nephrology Pending autoimmune workup due to kidney failure and pericarditis Social service consult for outpatient dialysis qualification. Pending medical records from walking dragline operator and renal biopsy results from [facility]. Unfortunately patient doesn't have insurance. Continue metoprolol and hydralazine We will continue to monitor the vital signs. We will continue to provide general supportive care, GI and DVT prophylaxis. PT to evaluate Case management for home oxygen NEURO: Minimize central acting medications as possible. Maintain fall precautions, adequate lighting during the day PULMONARY: Supplemental 02 as needed. Maintain aspiration precautions at all times CARDIOVASCULAR: Follow hemodynamics. Vital signs per facility protocol GI & NUTRITION: Continue with nutritional support. Continue stool softeners and laxatives as needed. KIDNEYS & ELECTROLYTES: Strict monitoring of intake, output and overall fluid balance. Avoid nephrotoxic medications to the extent possible. Medications to be dosed according to renal function. Monitor electrolytes and replace as needed ENDOCRINE: Maintain blood glucose between 100-180 at all times. Hypoglycemia protocol in place INFECTIOUS DISEASE: Trend temperature, WBC and procalcitonin level Follow cultures, deescalate antibiotics as soon as possible. Panculture if new onset fever ONCOLOGY/HEMATOLOGY/COAGULATION: Monitor for s/s of bleeding Monitor hemoglobin, coagulation studies as needed SKIN: Pressure ulcer prevention per facility protocol Specialty mattress ORTHO/REHAB: Continue PT/OT Prophylaxis: Continue GI and DVT prophylaxis Code Status: Full Resuscitation Disposition: TBD Case discussed with supervising physician plan of care agreed upon JOSIANE MCLEAN Oct 14, 2024 21:02
[2024-10-15] VITALS (10 sets, daily range): BP systolic 163–195; BP diastolic 65–95; PULSE 78–91; RESP 18–20; TEMP 97.7–98.7; O2SAT 95–98
[2024-10-15 03:08] LABS: RHEUMATOID ARTHRITIS FACTOR 13.1 IU/mL (<14.0)
[2024-10-15] MEDS: BisaCODYL 10 MG SUPP.RECT RC ONE (11:07)
--- NOTE | 2024-10-15 12:10 | PN ---
NEPHROLOGY PROGRESS NOTE Date/Time Patient Seen: Oct 15, 2024 Reason for Consultation: 12:10 SUBJECTIVE: This is a 39-year-old female with a past medical history of gestational hypertension Patient was transferred from [facility] for CT evaluation for pericardial effusion and possible pericardial window. She presented to [facility] Emergency room with complaints of sudden shortness of breath. She was found to be hypertensive according Cardene drip. 2D echo revealed found to have moderate to large circumferential pericardial effusion with right ventricular early diastolic collapse suggestive of cardiac tamponade. There is also large left-sided pleural effusion. S/p pericardial window with 400 mL removed, 100 mL were sent for cytology. Chest tube has been removed. She was noted to have elevated BUN/creatinine. Patient is aware of kidney problems states she had a biopsy done by field counsel Patient not does not remember biopsy results or field counsel name. Pending medical records requested from field counsel. We have been consulted for renal failure. Renal function remains elevated Electrolytes and hemoglobin are stable. Significant proteinuria noted. 4.7 g/day Continues on diuretics. Serologies are negative She was seen in the medical floor, in no acute distress Patient states pulmonary symptoms have improved No Family at the bedside Prognosis remains guarded REVIEW OF SYSTEMS: GENERAL: Negative for any nausea, vomiting, fevers, chills, or weight loss. NEUROLOGIC: Negative for any blurry vision, blind spots, double vision, facial asymmetry, dysphagia, dysarthria, hemiparesis, hemisensory deficits, vertigo, ataxia. HEENT: Negative for any head trauma, neck trauma, neck stiffness, photophobia, phonophobia, sinusitis, rhinitis. CARDIAC: Negative for any chest pain, dyspnea on exertion, paroxysmal nocturnal dyspnea, peripheral edema. PULMONARY: Negative for any shortness of breath, wheezing, COPD, or TB exposure. GASTROINTESTINAL: Negative for any abdominal pain, nausea, vomiting, bright red blood per rectum, melena. GENITOURINARY: Negative for any dysuria, hematuria, incontinence. INTEGUMENTARY: Negative for any rashes, cuts, insect bites. RHEUMATOLOGIC: Negative for any joint pains, photosensitive rashes, history of vasculitis or kidney problems. HEMATOLOGIC: Negative for any abnormal bruising, frequent infections or bleeding. PHYSICAL EXAM: GENERAL: Alert and oriented x 3. No acute distress. Well-nourished. EYES: EOMI. Anicteric. HENT: Moist mucous membranes. No scleral icterus. No cervical lymphadenopathy. LUNGS: Clear to auscultation bilaterally. No accessory muscle use. CARDIOVASCULAR: Regular rate and rhythm. No murmur. No JVD. ABDOMEN: Soft, non-tender and non-distended. No palpable masses. EXTREMITIES: No edema. Non-tender. SKIN: No rashes or lesions. Warm. NEUROLOGIC: No focal neurological deficits. CN II-XII grossly intact, but not individually tested. PSYCHIATRIC: Cooperative. Appropriate mood and affect. LABORATORY: [ ] Hematology Labs: Test 10/14/24 03:45 Range/Units White Blood Count 4.8 4.8-10.8 K/uL Red Blood Count 3.19 L 4.00-5.50 MIL/uL Hemoglobin 9.1 L 12.0-16.0 g/dL Hematocrit 27.5 L 36-48 % Mean Corpuscular Volume 86.2 79-99 fL Mean Corpuscular Hemoglobin 28.5 27.0-33.0 pg Mean Corpuscular Hemoglobin Concent 33.1 32.0-36.0 g/dL Red Cell Distribution Width 14.3 11.0-15.5 % Platelet Count 212 130-400 K/uL Mean Platelet Volume 11.5 H 7.5-10.5 fL Nucleated Red Blood Cells 0.0 0.0-0.19 % Chemistry Labs: Test 10/14/24 03:45 Range/Units Sodium Level 136 136-145 mmol/L Potassium Level 4.7 3.5-5.1 mmol/L Chloride Level 102 101-111 mmol/L Carbon Dioxide Level 22 21-32 mmol/L Blood Urea Nitrogen 95 *H 7-18 mg/dL Creatinine 7.3 H 0.5-1.0 mg/dL Glomerular Filtration Rate Calc 7 >90 mL/min Random Glucose 86 70-105 mg/dL Total Calcium 7.8 L 8.5-10.1 mg/dL Phosphorus Level 6.8 H 2.5-4.9 mg/dL Magnesium Level 2.10 1.80-2.40 mg/dL Coagulation Labs: Test 10/14/24 03:45 Range/Units Prothrombin Time 10.4 9.6-11.6 SEC Prothromb Time International Ratio <= 0.93 0.85-1.15 Activated Partial Thromboplast Time 35.2 26.3-35.5 SEC DIAGNOSTICS / RADIOLOGY: REASON: pneumothorax ORDERING PHYSICIAN: SANTANA CASTRO PROCEDURE: CXR1VW - CHEST 1VW CHEST 1VW REASON: pneumothorax COMPARISON: 10/13/2024 FINDINGS: There is mild cardiomegaly which appears new since prior exam. There is mild pulmonary vascular congestion and a small right pleural effusion. Mediastinum and bony thorax appear unremarkable. IMPRESSION: 1. Enlarging cardiac silhouette, there is no mild vascular congestion and a right pleural effusion. DICTATED BY: LISA KEYS MD DATE: 10/14/24 1130 REASON: pneumothorax ORDERING PHYSICIAN: SANTANA CASTRO PROCEDURE: CXR1VW - CHEST 1VW FRONTAL CHEST RADIOGRAPH INDICATION: pneumothorax COMPARISON: None FINDINGS/IMPRESSION: shelter monitor leads overlie the field of view. Unchanged less than 5% right pulmonary apical pneumothorax. Remainder of the study is unchanged. DICTATED BY: JORGE BILLS MD DATE: 10/13/24 0940 REASON: pneumothorax ORDERING PHYSICIAN: SANTANA CASTRO PROCEDURE: CXR1VW - CHEST 1VW FRONTAL CHEST RADIOGRAPH INDICATION: pneumothorax COMPARISON: 10/12/2024 at 8:22 AM FINDINGS/IMPRESSION: shelter monitor leads overlie the field of view. Nominal decrease in right pulmonary apical pneumothorax. Remainder of the study is unchanged. DICTATED BY: JORGE BILLS MD DATE: 10/12/24 1307 REASON: pleural effusion ORDERING PHYSICIAN: SANTANA CASTRO PROCEDURE: CXR1VW - CHEST 1VW PORTABLE CHEST RADIOGRAPH INDICATION: pleural effusion COMPARISON: 10/09/2024 FINDINGS: shelter monitor leads overlie the field of view. Heart size is normal. The pulmonary vascularity and lobo appear normal. No abnormal pulmonary parenchymal opacity or consolidation identified. Small 5% right pulmonary apical pneumothorax. Removal of right thoracostomy tube. No significant pleural effusion noted. IMPRESSION: Small 5% right pulmonary apical pneumothorax after removal of right thoracostomy tube. This examination was provided for interpretation at 7:18 AM. Above findings discussed with nurse Davis at 7:18 AM on 10/12/2024 via telephone prior to finalization of this report. DICTATED BY: JORGE BILLS MD DATE: 10/12/24 0908 REASON: s/p pericardial window ORDERING PHYSICIAN: MICHAEL DEL ROSARIO MD PROCEDURE: CXR1VW - CHEST 1VW FRONTAL CHEST RADIOGRAPH INDICATION: s/p pericardial window COMPARISON: 10/08/2024 FINDINGS/IMPRESSION: shelter monitor leads overlie the field of view. Heart is slightly enlarged, without pulmonary vascular congestion. Stable right chest tube, without pneumothorax. Small layering bilateral pleural effusions with subjacent passive atelectasis. DICTATED BY: JORGE BILLS MD DATE: 10/09/24 1126 REASON: s/p pericardial window ORDERING PHYSICIAN: MICHAEL DEL ROSARIO MD PROCEDURE: CXR1VW - CHEST 1VW CHEST 1VW HISTORY: Pericardial window COMPARISON: 10/06/2024 FINDINGS: A frontal projection of the chest was obtained. There are bilateral pulmonary infiltrates suggestive of pulmonary vascular congestion with possible superimposed pneumonitis. The heart is borderline enlarged. Poor inspiratory effort is seen. No evidence of aortic calcification is seen. IMPRESSION: 1. Bilateral pulmonary infiltrates are seen suggestive of pulmonary vascular congestion with possible superimposed pneumonitis. DICTATED BY: KARL DRISCOLL MD DATE: 10/08/24 1437 ASSESSMENT: Acute on chronic renal failure Fluid overload Anemia Hyperkalemia Acute hypoxic respiratory failure Hypertension Pericardial effusion, circumferential Cardiac tamponade Pleural effusion, left-sided PLAN: Labs, diagnostic, radiologic exams reviewed and interpreted by myself and supervising physician. We have reviewed external records in detail There is no need for emergent renal replacement therapy at this time. Continue with Lasix 80 mg BID to PO Social service consult for outpatient dialysis qualification. Pending medical records from field counsel and renal biopsy results Require close monitoring of renal function and electrolytes Order CBC, CMP,and electrolytes in am Continue with renal diet BiPAP as necessary, for respiratory distress Monitor blood pressure adjust medication doses as needed Avoid hypotensive episodes May use Dilaudid 0.5 mg IV every 6 hours as needed for severe pain Monitor blood sugars Strict intake, output, and daily weight should be monitored Please renally adjust medications Avoid nephrotoxic and nonsteroidal drugs Avoid contrast if possible Will continue to monitor renal function, anemia, electrolytes Treatment plan discussed with patient Questions were answered We have discussed with the other team physicians in detail about the care plan We will continue to monitor the patient closely ATTESTATION BY PHYSICIAN I have seen and examined the patient. I reviewed the documentation, medical decision making, and treatment plan as noted by the mid-level provider above. I agree with the findings and plan of care. LEE RODRIGUEZ MD, ELIZABETH RANGE EXAMINER Oct 15, 2024 12:10
--- NOTE | 2024-10-15 14:49 | PN ---
[facility] PROGRESS NOTE Date Patient Seen: Oct 15, 2024 Time of Visit: 1133 Supervising Physician: Dr. Henderson Primary Care Physician: No PCP Outpatient Specialists: Inpatient Consults: Dr. Damon (CTS), Dr. Valdez (Nephrology) PROBLEM LIST: Acute hypoxemic respiratory failure, POA improved Pericardial effusion with cardiac tamponade, circumferential, POA s/p pericardial window on 10/08/24 Small apical 5% pneumothorax post pericardial drain removal on 10/12/2024 Pneumonia, (+) HAEMOPHILUS INFLUENZAE III Acute kidney injury on CKD 5, POA, pending renal biopsy results from television program director and renal biopsy results Pleural effusion, left-sided, POA Hypertension, uncontrolled History of gestational hypertension INTERVAL HISTORY: Patient assessed at bedside. Currently on NRM 15L/100%. CXR today continues to show small apical pneumothorax. Okay to remove from NRM per Dr. Loi Monte and place on NC as tolerated to keep SPO2>90%. Creatinine increased to 6.8 and GFR decreased to 7. Continues on IV Lasix per nephrology. I&O shows -955 yesterday of urine output. Denies any chest pain, abdominal pain, nausea or vomiting. Blood pressure has improved with medical adjustment. 1:1 done with nephrology. Pending autoimmune workup Social service consult for outpatient dialysis qualification. Pending medical records from television program director and renal biopsy results from [facility]. Unfortunately patient doesn't have insurance. 10/14 patient was seen and examined by bedside with family present. Patient currently on2 L nasal cannula we will continue actively titrate FiO2 as tolerated. Patient states does not use home oxygen. Case management to arrange for home oxygen prior to discharge. Patient's CBC unremarkable. As per primary nurse no acute events to be reported. We will continue to follow recommendations from Nephrology. 10/15 patient was seen and examined by bedside with no family present. Patient currently on room air appears to be tolerating well. At time of visit patient with no complaints of chest pain or shortness of breadth. Patient's blood pressure noted to be elevated we will increase patient's hydralazine to 100 mg t.i.d., and add Norvasc 10 mg daily 1st dose to be given now. We will follow up with Nephrology for final recommendations. And possible discharged home. REVIEW OF SYSTEMS: 12 point ROS reviewed with patient. Pertinent positives mentioned above. Otherwise negative. PHYSICAL EXAM: GENERAL: alert, weak, awake oriented x 3 HEENT: EOMI, Sclera non icteric, moist mucosa NECK: Supple, no JVD, trachea midline LUNGS: Diminished right lung bruno HEART: Regular rate and rhythm. Normal S1 and S2, without murmurs ABD: Abdomen soft, nontender. Bowel sounds present EXT: No clubbing cyanosis or edema NEURO: AAOx3, follows commands Vital Signs (last 8hr) Date Time Temp Pulse Resp B/P (MAP) Pulse Ox O2 Delivery O2 Flow Rate FiO2 10/15/24 11:29 97.7 90 20 188/94 98 Room Air 10/15/24 08:25 98 Room Air* 2 100 Nasal Cannula* 10/15/24 07:31 98.6 83 20 169/92 100 Room Air LABS: Hematology Labs: Test 10/14/24 03:45 Range/Units White Blood Count 4.8 4.8-10.8 K/uL Red Blood Count 3.19 L 4.00-5.50 MIL/uL Hemoglobin 9.1 L 12.0-16.0 g/dL Hematocrit 27.5 L 36-48 % Mean Corpuscular Volume 86.2 79-99 fL Mean Corpuscular Hemoglobin 28.5 27.0-33.0 pg Mean Corpuscular Hemoglobin Concent 33.1 32.0-36.0 g/dL Red Cell Distribution Width 14.3 11.0-15.5 % Platelet Count 212 130-400 K/uL Mean Platelet Volume 11.5 H 7.5-10.5 fL Nucleated Red Blood Cells 0.0 0.0-0.19 % Chemistry Labs: Test 10/14/24 03:45 Range/Units Sodium Level 136 136-145 mmol/L Potassium Level 4.7 3.5-5.1 mmol/L Chloride Level 102 101-111 mmol/L Carbon Dioxide Level 22 21-32 mmol/L Blood Urea Nitrogen 95 *H 7-18 mg/dL Creatinine 7.3 H 0.5-1.0 mg/dL Glomerular Filtration Rate Calc 7 >90 mL/min Random Glucose 86 70-105 mg/dL Total Calcium 7.8 L 8.5-10.1 mg/dL Phosphorus Level 6.8 H 2.5-4.9 mg/dL Magnesium Level 2.10 1.80-2.40 mg/dL Coagulation Labs: Test 10/14/24 03:45 Range/Units Prothrombin Time 10.4 9.6-11.6 SEC Prothromb Time International Ratio <= 0.93 0.85-1.15 Activated Partial Thromboplast Time 35.2 26.3-35.5 SEC DIAGNOSTICS / RADIOLOGY RESULTS: na PLAN Okay for NC, Continue follow recommendations Nephrology Pending autoimmune workup due to kidney failure and pericarditis Social service consult for outpatient dialysis qualification. Pending medical records from television program director and renal biopsy results from [facility]. Unfortunately patient doesn't have insurance. Continue metoprolol Increase hydralazine to 100 mg t.i.d. Start Norvasc 10 mg daily 1st dose to be given now We will continue to monitor the vital signs. We will continue to provide general supportive care, GI and DVT prophylaxis. PT to evaluate Case management for home oxygen NEURO: Minimize central acting medications as possible. Maintain fall precautions, adequate lighting during the day PULMONARY: Supplemental 02 as needed. Maintain aspiration precautions at all times CARDIOVASCULAR: Follow hemodynamics. Vital signs per facility protocol GI & NUTRITION: Continue with nutritional support. Continue stool softeners and laxatives as needed. KIDNEYS & ELECTROLYTES: Strict monitoring of intake, output and overall fluid balance. Avoid nephrotoxic medications to the extent possible. Medications to be dosed according to renal function. Monitor electrolytes and replace as needed ENDOCRINE: Maintain blood glucose between 100-180 at all times. Hypoglycemia protocol in place INFECTIOUS DISEASE: Trend temperature, WBC and procalcitonin level Follow cultures, deescalate antibiotics as soon as possible. Panculture if new onset fever ONCOLOGY/HEMATOLOGY/COAGULATION: Monitor for s/s of bleeding Monitor hemoglobin, coagulation studies as needed SKIN: Pressure ulcer prevention per facility protocol Specialty mattress ORTHO/REHAB: Continue PT/OT Prophylaxis: Continue GI and DVT prophylaxis Code Status: Full Resuscitation Disposition: TBD Case discussed with supervising physician plan of care agreed upon JOSIANE MCLEAN Oct 15, 2024 14:49
[2024-10-15 15:11] LABS: ATYPICAL P-ANCA AB <1:20 titer (Neg:<1:20); CYTOPLASMIC (C-ANCA) AB, IGG <1:20 titer (Neg:<1:20)
--- NOTE | 2024-10-15 17:05 | NUR ---
DC PLAN HOME 02 TRIGGER CM DIRECTOR SPOKE TO JOSIANE MCLEAN NP. WENT OVER CASE PATIENT DOES NOT HAVE 02 DX. WEAN TO RA. DOES NOT APPEAR TO BE READY FOR DC BUN AND CR INCREASING. VINAY CHILEL GAVE OKAY TO CANCEL O2 ORDER. Addendum: 10/15/24 at 1707 by CONOR NICOLAS RN CM Amended: Links added.
[2024-10-15] MEDS: hydrALAZine 25MG TABLET PO SCH (21:33)
[2024-10-16] VITALS (8 sets, daily range): BP systolic 159–188; BP diastolic 76–95; PULSE 77–87; RESP 18–20; TEMP 96.9–99; O2SAT 97
[2024-10-16 04:03] LABS: HEMATOCRIT 28.8 % (36-48); MEAN CORPUSCULAR HEMOGLOBIN 28.6 pg (27.0-33.0); MEAN CORPUSCULAR VOLUME 86.7 fL (79-99); RED BLOOD CELL COUNT(AUTO) 3.32 MIL/uL (4.00-5.50); RED CELL DISTRIBUTION WIDTH 14.1 % (11.0-15.5)
[2024-10-16 04:20] LABS: BILIRUBIN,TOTAL 0.2 mg/dL (0.2-1.0); CREATININE 7.7 mg/dL (0.5-1.0); PHOSPHORUS 7.2 mg/dL (2.5-4.9); POTASSIUM 4.5 mmol/L (3.5-5.1); TOTAL PROTEIN, SERUM 5.5 g/dL (6.0-8.3)
--- NOTE | 2024-10-16 14:31 | DS ---
[facility] DISCHARGE SUMMARY Date Patient Seen: Oct 16, 2024 Time of Visit: 1119 Supervising Physician: Dr. SHEN Primary Care Physician: No PCP Outpatient Specialists: Inpatient Consults: Dr. Damon (CTS), Dr. Valdez (Nephrology) PROBLEM LIST: Acute hypoxemic respiratory failure, POA, resolved on room air Pericardial effusion with cardiac tamponade, circumferential, POA s/p pericardial window on 10/08/24, resolved Small apical 5% pneumothorax post pericardial drain removal on 10/12/2024, resolved Pneumonia, (+) HAEMOPHILUS INFLUENZAE III, completed treatment Acute kidney injury on CKD 5, POA, pending renal biopsy results from n ephrologist and renal biopsy results, stable we will follow up with Nephrology Pleural effusion, left-sided, POA Hypertension, uncontrolled History of gestational hypertension HOSPITAL COURSE: HPI (per admitting provider) 39-year-old female with past medical history of gestational hypertension who presented to [facility] as a transfer from [facility] here for CT evaluation for pericardial effusion for possible pericardial window. Patient initially presented to OSH with complaint of sudden shortness of breaths that started yesterday. At that time presentation in ED patient was also found to have hypertension requiring Cardene drip. Patient was initially admitted to ICU and underwent 2D echo and found to have moderate to large circumferential pericardial effusion with right ventricular early diastolic collapse suggestive of cardiac tamponade. There is also large left-sided pleural effusion. Patient was seen and examined by bedside with no family present. Patient is awake alert able to answer simple questions appropriately. Patient has remained on room air is tolerating well. Patient denies any chest pain or shortness of breadth. Patient denies any shortness of breath upon ambulation. Patient states is feeling better. Patient denies nausea vomiting or abdominal pain. Is having bowel movements is tolerating p.o. diet. Patient has been cleared from Nephrology standpoint for discharge, to follow up with Nephrology within one week and to be discharged on Lasix 80 mg b.i.d.. Instructed patient will be getting discharged today and will need to follow up with PCP and Nephrology within 3-5 days upon discharge. Patient voices understanding and agrees with plan. The patient was treated for the following problems: ACTIVE PROBLEM LIST FOR THE HOSPITALIZATION: Acute hypoxemic respiratory failure, POA, resolved on room air Pericardial effusion with cardiac tamponade, circumferential, POA s/p perica rdial window on 10/08/24, resolved Small apical 5% pneumothorax post pericardial drain removal on 10/12/2024, resolved Pneumonia, (+) HAEMOPHILUS INFLUENZAE III, completed treatment Acute kidney injury on CKD 5, POA, pending renal biopsy results from ssis developer and renal biopsy results, stable we will follow up with Nephrology CHRONIC PROBLEMS: continue previous management per PCP unless otherwise indicated SURGICAL INSTRUMENT MAKER FINDINGS/RECOMMENDATIONS: [ ] PROCEDURES: as mentioned above DISCHARGE MEDICATIONS: Hydralazine 100 mg t.i.d. Metoprolol succinate 100 mg daily Amlodipine 10 mg daily Lasix 80 mg b.i.d. Pt hemodynamically stable and afebrile at time of discharge. PCP notified of patients admission, hospital course and discharge. Continued Medications: Atorvastatin Calcium (Atorvastatin Calcium) 40 Mg Tablet 40 TAB PO HS Nifedipine (Nifedipine ER) 60 Mg Tablet.er 60 TAB PO BID Discontinued Medications: Lisinopril (Lisinopril) 10 Mg Tablet 10 TAB PO BID Metoprolol Succinate (Metoprolol Succinate) 25 Mg Tab.er.24h 25 TAB PO DAILY PHYSICAL EXAM: GENERAL: alert, weak, awake oriented x 3 HEENT: EOMI, Sclera non icteric, moist mucosa NECK: Supple, no JVD, trachea midline LUNGS: Diminished right lung bruno HEART: Regular rate and rhythm. Normal S1 and S2, without murmurs ABD: Abdomen soft, nontender. Bowel sounds present EXT: No clubbing cyanosis or edema NEURO: AAOx3, follows commands FOLLOW-UP: Follow-up with PCP in 2-3 days Follow up with Nephrology within 3-5 days upon discharge RECOMMENDATIONS: See Discharge Instructions This case was seen and discussed with my supervising physician. 30 minutes spent on discharge process, including evaluation of the patient, discussion with nursing staff, medication reconciliation and follow-up appointments JOSIANE MCLEAN Oct 16, 2024 14:31
--- NOTE | 2024-10-16 21:54 | PN ---
SUBJECTIVE: This patient has renal failure, anemia, multiple other comorbidities. The patient is unable to qualify for long-term dialysis. No urgent need for dialysis. The patient has previous pericardial effusion, hypoxic respiratory failure, which has resolved. The patient has previous pneumothorax. No other associated finding. No other aggravating or relieving factors. Underlying hypertension is also present. The patient has been treated for pneumonia. The patient lives in [place] area and biopsy done there, followed up by doctor there. PHYSICAL EXAMINATION: VITAL SIGNS: Blood pressure is 159/76, pulse is 85, respiratory rate 20, afebrile. HEENT: Head is atraumatic, normocephalic. Pupils are round and reactive. Sclerae are anicteric. Conjunctivae not pale. Oral mucosa is not dry. NECK: Supple. No masses or bruits. Thyroid is palpable. Neck has no bruits. CHEST: Shows equal thoracic percussion note being resonant in all areas. CARDIAC: Regular rhythm, no rub, no S3, S4. No parasternal heave. LABORATORY DATA: Labs have been reviewed in detail. Old records reviewed. Lab data has shown low hemoglobin of 9.5. Imaging studies are reviewed. BUN of 94, creatinine 7.7. PROBLEMS: Renal failure, anemia and hypertension. Multiple other comorbidities as above. PLAN: Continue supportive care, diuretics. The patient is counseled on the diet. Unable to qualify for long-term dialysis. Now, she is stable. No need for short dialysis or urgent dialysis at this time. The patient has been explained and social work case manager have been consulted. Thank you for this patient. Overall, condition remained guarded. TID: [id number] RECEIPT: [id number]
--- NOTE | 2024-10-16 23:50 | NUR ---
Pt d/c'd to home via uber. Removed any IVs or telemetry from pt. Reinforced discharge education with pt. Transported pt to ER waiting room via wheelchair and left pt with security and storage facility housekeeper with pt in waiting room seat. Waiting for [employer] to arrive to take pt home.
== END 2024-10-17 | disposition home or self-care (01) | DRG 314 ==
LOC: 2CV 23:30 → 2CH 10-08 02:16 → 2AH 10-09 18:37
PROVIDERS: ADMIT Internal Medicine; ATTEND Internal Medicine
PROC: 30233N1 Transfusion of Nonautologous Red Blood Cells into Peripheral Vein, Percutaneous Approach (ICD-10-PCS; 2024-10-08)
PROC: 0W9D3ZZ Drainage of Pericardial Cavity, Percutaneous Approach (ICD-10-PCS; principal; 2024-10-08 09:00)
DX: I31.39 Other pericardial effusion (noninflammatory) (principal); J18.9 Pneumonia, unspecified organism; J96.01 Acute respiratory failure with hypoxia; N17.9 Acute kidney failure, unspecified; N18.5 Chronic kidney disease, stage 5; I16.9 Hypertensive crisis, unspecified; J93.9 Pneumothorax, unspecified; I12.0 Hypertensive chronic kidney disease with stage 5 chronic kidney disease or end stage renal disease; Z20.822 Contact with and (suspected) exposure to COVID-19; I31.4 Cardiac tamponade; E87.70 Fluid overload, unspecified; D64.9 Anemia, unspecified; E87.5 Hyperkalemia; Z86.32 Personal history of gestational diabetes
CPT/HCPCS: 36415; 36600; 71045; 80048; 80053; 81001; 82150; 82550; 82570; 82728; 82803; 82948; 83036; 83540; 83550; 83615; 83735; 83880; 83970; 83986; 84100; 84145; 84156; 84157; 84443; 84484; 84550; 84703; 85025; 85027; 85610; 85651; 85730; 86038; 86140; 86200; 86215; 86235; 86255; 86431; 86850; 86900; 86901; 86923; 87071; 87076; 87086; 87116; 87186; 87205; 87206; 87635; 87804; 88108; 88305; 89051; 94640; A7048; G0378; J0330; J0360; J0456; J0690; J1100; J1171; J1644; J1756; J1940; J2003; J2175; J2405; J2470; J2704; J2710; J3010; J3475; J3490; J7030; J7040; J7050; P9016; A4215; A4221; A4222; A4223; A4649; C1713